=== PATIENT | male | born 1985 | race African-American/Black ===

== ENCOUNTER 2024-08-13 15:05 | Emergency (ER) | payer BC, SELFPAY ==
[2024-08-13 15:08] VITALS: BP 136/81; PULSE 88; RESP 16; TEMP 37.4; O2SAT 100
--- NOTE | 2024-08-13 15:29 | ED_ITS ---
HPI - General Adult General Chief complaint: Allergic Reaction Stated complaint: STD Exposure Time Seen by Provider: 08/13/24 15:29 Source: patient, RN notes reviewed and old records reviewed Mode of arrival: ambulatory Limitations: no limitations History of Present Illness HPI narrative: 38 year old male with complaints of burning with urination started yesterday with possible exposure to STD's 2 weeks ago. Patient reports that his throat feels swollen with some painful swallowing, able to control his secretions and states feels hard to breath at times question if allergic to something, Patient has nonlabored breathing with SAO2 100% on room air no trismus or any Slick angina, Patient throat is red with no swelling noted.. Patient reports that he just returned from [place] yesterday. has had many new foods, spices, different skin care product. MD complaint: sore throat and possible STD exposure Onset (ago): day(s) (burning with urination starting yesterday with possible STD exposure 2 weeks ago) Severity: mild Treatments prior to arrival: none Related Data Home Medications ?Medication ?Instructions ?Recorded ?Confirmed ?Last Taken ?Type ascorbate calcium (vitamin C) .ROUTE 08/13/24 Unknown History bupropion HCl 100 mg tablet,12 hr mg PO 08/13/24 Unknown History sustained-release naltrexone 50 mg tablet mg 08/13/24 Unknown History Allergies Allergy/AdvReac Type Severity Reaction Status Date / Time No Known Allergies Allergy Verified 08/13/24 15:37 Review of Systems Review of Systems: CONSTITUTIONAL: Denies fever, chills, or sweats. EYES: Denies visual changes, redness, or discharge. ENT: Denies rhinorrhea, congestion,positive sore throat, no otalgia. CARDIOVASCULAR: Denies chest pain, palpitations, or edema. RESPIRATORY: Denies cough or acute dyspnea. GASTROINTESTINAL: Denies abdominal pain, nausea, vomiting, or diarrhea. GENITOURINARY: states some dysuria no hematuria, concern for possible exposure to STD. SKIN: Denies rash or itching. MUSCULOSKELETAL: Denies back pain, joint pain, or myalgia. NEUROLOGIC: Denies headache, numbness, or weakness. PSYCHIATRIC: Denies anxiety or depression. All systems reviewed & are unremarkable except as noted in HPI and below PMFSH Past Medical History Medical History (Updated 08/15/24 @ 15:35 by Ashley Quintana NP) Anxiety and depression Social History Social History (Updated 08/15/24 @ 15:24 by Ashley Quintana NP) Smoking status: Smoker, status unknown Alcohol intake: unknown Substance use: unknown Living arrangements: with family Gender identity (if verbalized by the patient): Male Comments At time of signature, agree with nursing past medical, surgical, social and family history. There is no relevant family history pertinent to the presenting complaint Exam Narrative: GENERAL: Well-appearing, well-nourished, and in no acute distress. HEAD: Normocephalic, atraumatic. EYES: PERRLA and EOMI. ENT: Nares clear, no rhinorrhea or epistaxis. Mucous membranes moist.TM's normal, throat with some redness with no swelling to throat NECK: Supple. no lymphadenopathy CHEST: Clear to auscultation. No respiratory distress. respirations even and nonlabored SAO2 100% on room air HEART: Regular rate and rhythm. No murmur heard. Normal peripheral pulses. ABDOMEN: Soft, nontender, nondistended, normal active bowel sounds.no CVA tenderness, reports some burning with urination no penile drainage. EXTREMITIES: Normal range of motion. No edema. SKIN: Warm, dry, no rash. NEURO: No focal deficits. Alert and oriented x3. Course Course Emergency Course: Patient is aware of diagnosis, understands and agrees to treatment plan.? Anticipatory guidance given.? Patient agrees to follow-up as directed and is aware of reasons to seek care at the emergency department. Portions of this record may have been created with voice recognition software Level of Care: Express Care Visit Vital Signs Vital signs: Vital Signs Temperature 37.4 C 08/13/24 15:08 Pulse Rate 88 08/13/24 15:08 Respiratory Rate 16 08/13/24 15:08 Blood Pressure 136/81 08/13/24 15:08 Pulse Oximetry 100 08/13/24 15:08 Oxygen Delivery Room Air 08/13/24 15:08 Temperature 37.4 C 08/13/24 15:08 Pulse Rate 88 08/13/24 15:08 Respiratory Rate 16 08/13/24 15:08 Blood Pressure 136/81 08/13/24 15:08 Pulse Oximetry 100 08/13/24 15:08 Oxygen Delivery Room Air 08/13/24 15:08 Reviewed Medical Decision Making MDM Narrative Medical decision making narrative: Exam findings and imaging show no acute concerns or changes; patient is non- toxic appearing and is in no distress.? Patient is appropriate for outpatient treatment and follow-up Patient received Rocephin 500mg Im with Lidocaine while in clinic and tolerated well with no reaction. Differential Diagnosis Differential Diagnosis: possible exposure to STD, urinary burning, pharyngitis, strep pharyngitis URI Medical Records Medical records reviewed: Yes I reviewed the external patient's medical records. Vital Signs Vital Signs: Vital Signs Temperature 37.4 C 08/13/24 15:08 Pulse Rate 88 08/13/24 15:08 Respiratory Rate 16 08/13/24 15:08 Blood Pressure 136/81 08/13/24 15:08 Pulse Oximetry 100 08/13/24 15:08 Oxygen Delivery Room Air 08/13/24 15:08 Temperature 37.4 C 08/13/24 15:08 Pulse Rate 88 08/13/24 15:08 Respiratory Rate 16 08/13/24 15:08 Blood Pressure 136/81 08/13/24 15:08 Pulse Oximetry 100 08/13/24 15:08 Oxygen Delivery Room Air 08/13/24 15:08 reviewed Lab Data Lab results reviewed: Yes I reviewed the patient's lab results. Lab results narrative: strep screen negative culture sent Urine dip completed and reviewed with no blood or any nitrite or Leukocytes in urine Dirty urine sent for STD analysis see reports Labs: Lab Results 08/13/24 08/13/24 08/13/24 Range/Units 15:38 15:39 16:27 POC Urine Color Yellow POC Urine Clarity Clear POC Urine pH 6.0 POC Ur Specif [place] 1.030 POC Urine Protein Negative (Negative) POC Ur Glucose (UA) Negative (Negative) POC Urine Ketones Negative (Negative) POC Urine Blood Negative (Negative) POC Urine Nitrite Negative (Negative) POC Urine Bilirubin Negative (Negative) POC Urine Urobilinogen 0.2 POC U Leukocyte Esteras Negative (Negative) C. trachomatis (PCR) Not detected (NOT DETECTE) N. gonorrhoeae (PCR) Not detected (NOT DETECTE) POC Grp A Strep Screen Negative (Negative) T. vaginalis (PCR) Not detected (NOT DETECTE) Critical Care Time Critical Care Time Critical Care Time: No Discharge Plan Discharge Clinical Impression: Possible exposure to STD Pharyngitis Qualifiers: Pharyngitis/tonsillitis etiology: unspecified etiology Qualified Code(s): J02.9 - Acute pharyngitis, unspecified Patient Disposition: Home, Self-Care Condition: Stable Instructions: Antibiotic Form, Sexually Transmitted Diseases (ED), Pharyngitis (ED) Additional Instructions: STD testing sent for GC chlamydia and Trichomonas Urine dip performed showing no abnormalities Strep screen negative culture sent Patient will be notified of test results either later this evening or tomorrow and if any further medications are required and they will be ordered at that time May take Zyrtec or Claritin daily for any sinus congestion drainage If your symptoms persist, change or worsen significantly before you can contact your personal physician then please, without delay, go to the emergency department for further evaluation. Follow-up with PCP in 7-10 days or sooner if needed Follow up with PCP soon in regards to your blood pressure which is elevated above threshold for referral. Blood pressure above 120/80 may indicate pre- hypertension. 136/81 Tylenol or ibuprofen for any fever pain Patient Language: Emirati Prescriptions: No Action naltrexone 50 mg tablet bupropion HCl 100 mg tablet sustained-release 12 hr PO ascorbate calcium (vitamin C) .ROUTE Follow-up/Referrals: Ag,Brando Marroquin DO [Primary Care Provider] - Time of Disposition: 16:08 Quality Miracle Coma Scale Eyes: Open Verbal: Oriented and Alert Motor: Follows Commands Miracle Coma Total Score: 15
[2024-08-13 15:41] LABS: EDSTREPNEGPOS1 Negative (Negative)
[2024-08-13] MEDS: cefTRIAXone 500 MG, LIDOCAINE 1% LOCAL INJ 1 ML IM (16:02)
[2024-08-13 16:30] LABS: EDUAAPPEAR Clear; EDUABILI Negative (Negative); EDUABLOOD Negative (Negative); EDUACOLOR1 Yellow; EDUAGLUCOSE Negative (Negative); EDUAKETONE Negative (Negative); EDUALEUKO Negative (Negative); EDUANITRATE Negative (Negative); EDUAPROTEIN Negative (Negative); EDUAUROBILI 0.2
[2024-08-13 17:45] LABS: Trichomonas Vag PCR NOT DETECTED (NOT DETECTE)
[2024-08-13 18:08] LABS: Chlamydia trachomatis NOT DETECTED (NOT DETECTE); Neisseria gonorrhoeae PCR NOT DETECTED (NOT DETECTE)
--- OUTSIDE RECORDS SUMMARY | 2024-08-20 22:51 | XMS_ITS | Clinical Summary ---
Author Organization [facility] Address [address] [place] [address]. 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 Gender Identity Not on file Sexual Orientation Not on file Last Filed Vital Signs Vital Sign Reading Time Taken Comments Blood Pressure 118/85 11/04/2021 9:51 AM CDT Pulse 85 11/04/2021 9:51 AM CDT Temperature 36.6 ??C (97.8 ??F) 11/04/2021 6:22 AM CD T Respiratory Rate 18 11/04/2021 9:51 AM CDT Oxygen Saturation 97% 11/04/2021 9:51 AM CDT Inhaled Oxygen Concentration - - Weight 117.9 kg (259 lb 14.8 oz) 11/02/2021 6:36 PM MANAGER MEDICAL Height 182.9 cm (6') 11/02/2021 6:36 PM MANAGER MEDICAL Body Mass Index 35.25 11/02/2021 6:36 PM MANAGER MEDICAL Plan of Treatment Health Maintenance Due Date Last Done Comments Annual Physical 1988 Hepatitis C 12/10/2003 DTaP, Tdap and Td Vaccines ( 1 - Tdap) 2004 Hepatitis B Vaccines (1 of 3 - 19+ 3-dose series) 2004 COVID-19 Vaccine (2023-2 5 season) 2024 Influenza Adult (#1) 2024 HPV Vaccines Aged Out No longer eligi ble based on patient's age to complete this topic Meningococcal Vaccine Aged Out No haleigh vitor eligible based on patient's age to complete this topic Pneumococcal Vaccine: Pediat rics (0 to 5 Years) and At-Risk Patients (6 to 64 Years) Aged Out No longer eligible b ased on patient's age to complete this topic RSV Immunizations Under 20 Months Aged Out No longer eligible based on patient's age to complete this topic Insurance [place] [id number] Care Teams Mortgage Servicing Specialist Relationship Specialty Start Date End Date None, Provider, PCP - General 11/02/21
--- OUTSIDE RECORDS SUMMARY | 2024-08-20 22:51 | XMS_ITS | Encounter Summary ---
Author Organization [facility] Address [address] [place] [address]. 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 No / Unsure 11/02/2021 6:37 PM ASSISTANT TODDLER TEACHER documented as of this encounter Plan of Treatment Not on file documented as of this encounter Visit Diagnoses Not on filedocumented in this encounter Additional Health Concerns Infection Onset Date Last Indicated Resolved Time COVID-19 Rule Out 11/02/2021 11/02/2021 11/03/2021 6:46 PM CDT documented as of this encounter Care Teams Powder Monkey Relationship Specialty Start Date End Date None, Provider, PCP - General 11/02/21 documented as of this encounter
--- OUTSIDE RECORDS SUMMARY | 2024-08-20 22:51 | XMS_ITS | Encounter Summary ---
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 Psychiatric/Behavioral: Positive for suicidal ideas. Negative for confusion, hallucinations and self-injury. Physical Exam Filed Vitals: 11/02/21 1836 11/02/21 2215 BP: (!) 161/106 133/80 Pulse: 119 77 Resp: 20 17 Temp: 98.2 ??F (36.8 ??C) TempSrc: Oral SpO2: 97% 96% Weight: 117.9 kg (259 lb 14.8 oz) Height: 6' (1.829 m) Physical Exam Vitals and nursing note reviewed. Constitutional: Appearance: He is well-developed. HENT: Head: Normocephalic and atraumatic. Eyes: General: Right eye: No discharge. Left eye: No discharge. Pupils: Pupils are equal, round, and reactive to light. Cardiovascular: Rate and Rhythm: Normal rate and regular rhythm. Heart sounds: Normal heart sounds. No murmur heard. Pulmonary: Effort: Pulmonary effort is normal. No respiratory distress. Breath sounds: Normal breath sounds. No stridor. No wheezing or rales. Abdominal: General: Bowel sounds are normal. There is no distension. Palpations: Abdomen is soft. Tenderness: There is no abdominal tenderness. There is no guarding or rebound. Musculoskeletal: General: No deformity. Normal range of motion. Cervical back: Normal range of motion and neck supple. Skin: General: Skin is warm and dry. Findings: No rash. Neurological: Mental Status: He is alert and oriented to person, place, and time. Psychiatric: Mood and Affect: Mood is depressed. Affect is tearful. Speech: Speech normal. Behavior: Behavior normal. Behavior is not agitated or aggressive. Thought Content: Thought content includes suicidal ideation. Thought content does not include homicidal ideation. Thought content includes suicidal plan. Thought content does not include homicidal plan. Cognition and Memory: Cognition and memory normal. Judgment: Judgment normal. Comments: Patient tearful, flat affect, poor eye contact Diagnostic Studies / Procedures Orders Placed This Encounter ??? CBC W/DIFF AUTOMATED ??? SALICYLATE ??? ETHANOL ??? URINALYSIS ??? DRUG SCREEN RAPID ??? ACETAMINOPHEN ??? COMPREHENSIVE METABOLIC PANEL ??? THYROID STIM HORMONE, TSH ??? Patient monitoring 1 staff:1 patient ??? ED Cardiac Monitoring ??? Continuous Pulse Oximetry ??? Vital signs ??? Vital signs ??? Insert Peripheral IV ??? ECG 12 lead ??? CORONAVIRUS (COVID 19) PCR ELECTROCARDIOGRAMS: Results for orders placed or performed during the hospital encounter of 11/02/21 ECG 12 lead Narrative SJS-ED Test Date: 2021-11-02 Pat Name: BETHANY BOSWELL Department: Room: EXAM OO Gender: Male Nursing Professor: VALENTINA : 1985 Requested By: GASTON MALAGON Order Number: [id number] Reading MD: Measurements Intervals Keller Rate: 88 P: 47 TX: 154 QRS: 47 QRSD: 105 T: 17 QT: 328 QTc: 398 Interpretive Statements SINUS RHYTHM ECG with sinus rhythm, rate 88 bpm, no acute ST elevation, normal intervals. LABORATORY STUDIES: Results for orders placed or performed during the hospital encounter of 11/02/21 CBC W/DIFF AUTOMATED Result Value Ref Range WBC 7.5 4.0 - 10.8 x10'3/uL RBC 4.80 4.50 - 6.10 x10'6/uL HGB 13.9 13.0 - 18.0 G/DL HCT 42.1 37.0 - 52.0 % MCV 87.7 78.0 - 100.0 FL MCH 29.0 27.0 - 31.0 PG MCHC 33.0 33.0 - 36.0 G/DL RDW 13.5 11.5 - 14.5 % PLT 209 150 - 350 x10'3/uL MPV 10.2 7.4 - 10.4 FL ABS. NEUTROPHILS 4.29 1.60 - 8.30 x10'3/uL ABS. LYMPHOCYTES 2.46 0.80 - 4.70 x10'3/uL ABS. MONOCYTES 0.58 0.00 - 1.50 x10'3/uL ABS. EOSINOPHILS 0.14 0.00 - 0.40 x10'3/uL ABS. BASOPHILS 0.01 0.00 - 0.20 x10'3/uL ABS. IMMATURE GRANULOCYTES 0.02 0.00 - 0.03 x10'3/uL ABS. NUCLEATED RBC'S 0.00 0.0 x10'3/uL SALICYLATE Result Value Ref Range Salicylates <1.7 (LL) 2.8 - 20.0 MG/DL ETHANOL Result Value Ref Range Alcohol ZERO 0 G/DL URINALYSIS Result Value Ref Range COLOR (U) LIGHT YELLOW TRANSPARENCY CLEAR Specific Wheeler (U) 1.021 1.002 - 1.035 U PH 6.0 5 - 8 PROTEIN (U) NEGATIVE NEGATIVE URINE GLUCOSE NEGATIVE NEGATIVE MG/DL U KETONES NEGATIVE NEGATIVE BILIRUBIN (U) NEGATIVE NEGATIVE BLOOD NEGATIVE NEGATIVE NITRITES NEGATIVE NEGATIVE UROBILINOGEN NORMAL 0 - 1 EU/DL LEUKOCYTE ESTERASE NEGATIVE NEGATIVE RBC/HPF <1 0 - 3 /HPF WBC/HPF 3 0 - 6 /HPF BACTERIA (URINE) NONE /HPF DRUG SCREEN RAPID Result Value Ref Range PHENCYCLIDINE PCP (U) NEGATIVE NEGATIVE BENZODIAZEPINES SCREEN (U) NEGATIVE NEGATIVE COCAINE METABOLITES (U) NEGATIVE NEGATIVE AMPHETAMINE (U) NEGATIVE NEGATIVE CANNABINOIDS SCREEN (U) NEGATIVE NEGATIVE OPIATE SCREEN (U) NEGATIVE NEGATIVE BARBITURATES SCREEN (U) NEGATIVE NEGATIVE URINE TOX COMMENT Unconfirmed screening results are to be used only for medical purposes. CUTOFF CONCENTRATION Cut-off Concentration for a positive result ACETAMINOPHEN Result Value Ref Range Acetaminophen <2.0 (L) 10.0 - 30.0 MCG/ML COMPREHENSIVE METABOLIC PANEL Result Value Ref Range SODIUM 139 136 - 145 MMOL/L POTASSIUM 3.8 3.5 - 5.1 MMOL/L CHLORIDE S/P/B 107 98 - 107 MMOL/L CO2 29.2 21.0 - 32.0 MMOL/L GLUCOSE 100 74 - 106 MG/DL BUN 11 7 - 18 MG/DL CREATININE S/P/B 1.01 0.70 - 1.30 MG/DL CALCIUM 9.1 8.5 - 10.1 MG/DL BILIRUBIN TOTAL S/P/B 0.2 0.2 - 1.0 MG/DL ALKALINE PHOSPHATASE S/P/B 113 45 - 115 U/L AST 52 (H) 15 - 37 U/L ALT 40 16 - 61 U/L TOTAL PROTEIN S/P/B 7.6 6.4 - 8.2 G/DL ALBUMIN S/P/B 4.1 3.4 - 5.0 G/DL ANION GAP 2.8 (L) 5.0 - 15.0 MMOL/L OSMOLALITY (CALC) 287 MOSM/KG eGFR Non-Afr. Amer. >90 >90 ML/MIN/1.73 M2 eGFR Afr. Amer. >90 >90 ML/MIN/1.73 M2 GFR NOTES GFR REFERENCES: THYROID STIM HORMONE, TSH Result Value Ref Range TSH 1.440 0.358 - 3.740 uIU/ML IMAGING STUDIES No orders to display ED Course / Medical Decision Making Patient presents with suicidal ideation, active plan. Pertinent diagnostic studies to be performed for further workup. All emergent diagnoses considered on the differential diagnosis. Patient staffedwith attending physician Dr. Goncalves. ED Course as of Nov 03 6 Sat Nov 02, [id number] Called PRT, no answer, left voicemail for PRT to come see patient. [ZE] [id number] PRT evaluated patient, will have psych resident see. Patient updated and all questions answered to satisfaction. [ZE] [id number] residential construction instructor informed that patient will be admitted for further cares. Patient updated and in agreement with plan. All questions answered. [ZE] ED Course User Index [ZE] Gaston Malagon MD Medications - No data to display Clinical Impression Suicidal ideation (Primary) Depression There are no discharge medications for this patient. Disposition: Admit Follow Up: No follow-up provider specified. Gaston Malagon MD 11/03/2021 Cosigned by Lupe Arevalo MD at 11/07/2021 2:07 AM CDT ING MACHINE OPERATOR Associated attestation - Lupe Arevalo MD - 11/07/2021 2:07 AM CDT I saw and evaluated the patient, participating in the disla portions of the service. I reviewed the resident???s note. I agree with the resident???s findings and plan. LUPE GONCALVES MD 11/07/2021 documented in this encounter Plan of Treatment Not on file documented as of this encounter Procedures Procedure Name Priority Date/Time Associated Diagnosis Comments CORONAVIRUS (COVID 19) Nurse Collected Priority 11/02/2021 9:28 PM DRAWING MACHINE OPERATOR COMPREHENSIVE METABOLIC PANEL STAT 11/02/2021 7:12 PM DRAWING MACHINE OPERATOR CBC W/DIFF AUTOMATED STAT 11/02/2021 7:12 PM DRAWING MACHINE OPERATOR THYROID STIM HORMONE TSH STAT 11/02/2021 7:12 PM DRAWING MACHINE OPERATOR SALICYLATE STAT 11/02/2021 7:12 PM DRAWING MACHINE OPERATOR ETHANOL STAT 11/02/2021 7:12 PM DRAWING MACHINE OPERATOR ACETAMINOPHEN STAT 11/02/2021 7:12 PM DRAWING MACHINE OPERATOR DRUG SCREEN RAPID Nurse Collected Priority 11/02/2021 6:52 PM DRAWING MACHINE OPERATOR HC URINALYSIS AUTO W/MICRO Nurse Collected Priority 11/02/2021 6:52 PM DRAWING MACHINE OPERATOR ECG 12-LEAD STAT 11/02/2021 6:49 PM DRAWING MACHINE OPERATOR documented in this encounter Results * CORONAVIRUS (COVID 19) PCR (11/02/2021 9:28 PM DRAWING MACHINE OPERATOR) SPECIMEN NASAL 11/02/2021 8:46 PM DRAWING MACHINE OPERATOR [facility] CORONAVIRUS SARS COV 2 PCR (RESP) NEGATIVE NEGATIVE 11/03/2021 6:46 PM CDT [facility] Comment: THE SARS-CoV-2 TEST HAS BEEN AUTHORIZED BY THE FDA UNDER AN EUA FOR USE BY AUTHORIZED LABORATORIES. PERFORMED BY NUCLEIC ACID AMPLIFICATION PCR FIRST TEST UNKNOWN 11/02/2021 8:46 PM DRAWING MACHINE OPERATOR [facility] EMPLOYED IN HEALTHCARE NO 11/02/2021 8:46 PM DRAWING MACHINE OPERATOR [facility] SYMPTOMATIC DEFINED BY CDC NO 11/02/2021 8:46 PM DRAWING MACHINE OPERATOR [facility] HOSPITALIZATION STATUS NO 11/02/2021 8:46 PM DRAWING MACHINE OPERATOR [facility] RESIDENT OF [facility] NO 11/02/2021 8:46 PM DRAWING MACHINE OPERATOR [facility] NASAL STRUCTURE / Unknown 11/02/2021 9:28 PM DRAWING MACHINE OPERATOR Gaston Malagon MD MICROBIOLOGY - GENERAL [facility] Final Result Performing Organization Address [facility]/ZIP Co de Phone Number [facility] [address] [place] [address], [phone] [facility] [address] [place] [address], * THYROID STIM HORMONE, TSH (11/02/2021 7:12 PM DRAWING MACHINE OPERATOR) TSH 1.440 0.358 - 3.740 uIU/ML 11/02/2021 8:10 PM DRAWING MACHINE OPERATOR [facility] 11/02/2021 7:12 PM DRAWING MACHINE OPERATOR Gaston Malagon MD LABORATORY Final Resul t Performing Organization Address [facility]/ZIP Co de Phone Number [facility] [address] [place] [address], [place] [phone] * (ABNORMAL) COMPREHENSIVE METABOLIC PANEL (11/02/2021 7:12 PM DRAWING MACHINE OPERATOR) SODIUM S/P/B 139 136 - 145 MMOL/L 11/02/2021 8:10 PM DRAWING MACHINE OPERATOR [facility] POTASSIUM S/P/B 3.8 3.5 - 5.1 MMOL/L 11/02/2021 8:10 PM DRAWING MACHINE OPERATOR [facility] CHLORIDE S/P/B 107 98 - 107 MMOL/L 11/02/2021 8:10 PM [facility] CO2 29.2 21.0 - 32.0 MMOL/L 11/02/2021 8:10 PM [facility] GLUCOSE 100 74 - 106 MG/DL 11/02/2021 8:10 PM [facility] BUN 11 7 - 18 MG/DL 11/02/2021 8:10 PM [facility] CREATININE S/P/B 1.01 0.70 - 1.30 MG/DL 11/02/2021 8:10 PM [facility] CALCIUM S/P/B 9.1 8.5 - 10.1 MG/DL 11/02/2021 8:10 PM [facility] BILIRUBIN TOTAL S/P/B 0.2 0.2 - 1.0 MG/DL 11/02/2021 8:10 PM [facility] ALKALINE PHOSPHATASE S/P/B 113 45 - 115 U/L 11/02/2021 8:10 PM [facility] AST 52(H) 15 - 37 U/L 11/02/2021 8:10 PM [facility] ALT 40 16 - 61 U/L 11/02/2021 8:10 PM [facility] TOTAL PROTEIN S/P/B 7.6 6.4 - 8.2 G/DL 11/02/2021 8:10 PM [facility] ALBUMIN S/P/B 4.1 3.4 - 5.0 G/DL 11/02/2021 8:10 PM [facility] ANION GAP 2.8(L) 5.0 - 15.0 MMOL/L 11/02/2021 8:10 PM [facility] OSMOLALITY (CALC) 287 MOSM/KG 022 8:10 PM [facility] Comment:REFERENCE RANGE NOT ESTABLISHED EGFR NON-AFR. AMER. >90 >90 ML/MIN/1. 73 M2 11/02/2021 8:10 PM DRAWING MACHINE OPERATOR [facility] EGFR AFR. AMER. >90 >90 ML/MIN/1. 73 M2 11/02/2021 8:10 PM DRAWING MACHINE OPERATOR [facility] GFR NOTES GFR REFERENCE S: 11/02/2021 8:10 PM DRAWING MACHINE OPERATOR [facility] Comment: THE ESTIMATED GFR IS CALCULATED USING THE 2009 CKD-EPI EQUATION. THE FOLLOWING CATEGORIES FOR GRADING RENAL FUNCTION ARE RECOMMENDED BY THE INTERNATIONAL SOCIETY OF NEPHROLOGY (KDIGO 2012 CLINICAL PRACTICE GUIDELINE). G1,NORMAL OR HIGH: >89 ml/min/1.73 m2 G2,MILDLY DECREASED: 60-89 ml/min/1.73 m2 G3A,MILDLY TO MODERATELY DECREASED: 45-59 ml/min/1.73 m2 G3B,MODERATELY TO SEVERELY DECREASED: 30-44 ml/min/1.73 m2 G4,SEVERELY DECREASED: 15-29 ml/min/1.73 m2 G5,KIDNEY FAILURE: <15 ml/min/1.73 m2 11/02/2021 7:12 PM DRAWING MACHINE OPERATOR us Gaston Malagon MD LABORATORY Final Resul t Performing Organization Address City/[facility]/ZIP Co de Phone Number [facility] [address] [place] [address], [phone] * (ABNORMAL) ACETAMINOPHEN (11/02/2021 7:12 PM DRAWING MACHINE OPERATOR) ACETAMINOPHEN S/P/B <2.0(L) 10.0 - 30.0 MCG/ML 11/02/2021 8:09 PM DRAWING MACHINE OPERATOR [facility] 11/02/2021 7:12 PM DRAWING MACHINE OPERATOR us Gaston Malagon MD LABORATORY Final Resul t Performing Organization Address City/[facility]/ZIP Co de Phone Number [facility] [address] [place] [address], [place] [phone] * ETHANOL (11/02/2021 7:12 PM DRAWING MACHINE OPERATOR) ALCOHOL S/P/B ZERO 0 G/DL 11/02/2021 7:38 PM DRAWING MACHINE OPERATOR [facility] 11/02/2021 7:12 PM DRAWING MACHINE OPERATOR us Gaston Malagon MD LABORATORY Final Resul t Performing Organization Address [facility] de Phone Number [facility] [address] [place] [address], [phone] * (ABNORMAL) SALICYLATE (11/02/2021 7:12 PM DRAWING MACHINE OPERATOR) SALICYLATES <1.7(LL) 2.8 - 20.0 MG/DL 11/02/2021 8:10 PM DRAWING MACHINE OPERATOR [facility] 11/02/2021 7:12 PM DRAWING MACHINE OPERATOR Gaston Malagon MD LABORATORY Final Resul t Performing Organization Address [facility] de Phone Number [facility] [address] [place] [address], [phone] * CBC W/DIFF AUTOMATED (11/02/2021 7:12 PM DRAWING MACHINE OPERATOR) WBC 7.5 4.0 - 10.8 x10'3/uL 11/02/2021 7:25 PM DRAWING MACHINE OPERATOR [facility] RBC 4.80 4.50 - 6.10 x10'6/uL 11/02/2021 7:25 PM DRAWING MACHINE OPERATOR [facility] HGB 13.9 13.0 - 18.0 G/DL 11/02/2021 7:25 PM DRAWING MACHINE OPERATOR [facility] HCT 42.1 37.0 - 52.0 % 11/02/2021 7:25 PM DRAWING MACHINE OPERATOR [facility] MCV 87.7 78.0 - 100.0 FL 11/02/2021 7:25 PM DRAWING MACHINE OPERATOR [facility] MCH 29.0 27.0 - 31.0 PG 11/02/2021 7:25 PM DRAWING MACHINE OPERATOR [facility] MCHC 33.0 33.0 - 36.0 G/DL 11/02/2021 7:25 PM DRAWING MACHINE OPERATOR [facility] RDW 13.5 11.5 - 14.5 % 11/02/2021 7:25 PM DRAWING MACHINE OPERATOR [facility] PLT 209 150 - 350 x10'3/uL 11/02/2021 7:25 PM DRAWING MACHINE OPERATOR [facility] MPV 10.2 7.4 - 10.4 FL 11/02/2021 7:25 PM DRAWING MACHINE OPERATOR [facility] ABS. NEUTROPHILS 4.29 1.60 - 8.30 x10'3/uL 11/02/2021 7:25 PM DRAWING MACHINE OPERATOR [facility] ABS. LYMPHOCYTES 2.46 0.80 - 4.70 x10'3/uL 11/02/2021 7:25 PM DRAWING MACHINE OPERATOR [facility] ABS. MONOCYTES 0.58 0.00 - 1.50 x10'3/uL 11/02/2021 7:25 PM DRAWING MACHINE OPERATOR [facility] ABS. EOSINOPHILS 0.14 0.00 - 0.40 x10'3/uL 11/02/2021 7:25 PM DRAWING MACHINE OPERATOR [facility] ABS. BASOPHILS 0.01 0.00 - 0.20 x10'3/uL 11/02/2021 7:25 PM DRAWING MACHINE OPERATOR [facility] ABS. IMMATURE GRANULOCYTES 0.02 0.00 - 0.03 x10'3/uL 11/02/2021 7:25 PM DRAWING MACHINE OPERATOR [facility] ABS. NUCLEATED RBC'S 0.00 0.0 x10'3/uL 11/02/2021 7:25 PM [facility] 11/02/2021 7:12 PM DRAWING MACHINE OPERATOR us Gaston Malagon MD LABORATORY Final Resul t [facility] [address] [place] [address], [phone] * DRUG SCREEN RAPID (11/02/2021 6:52 PM DRAWING MACHINE OPERATOR) PHENCYCLIDINE PCP (U) NEGATIVE NEGATIVE 11/02/2021 7:21 PM DRAWING MACHINE OPERATOR [facility] BENZODIAZEPINES SCREEN (U) NEGATIVE NEGATIVE 11/02/2021 7:21 PM DRAWING MACHINE OPERATOR [facility] COCAINE METABOLITES (U) NEGATIVE NEGATIVE 11/02/2021 7:21 PM DRAWING MACHINE OPERATOR [facility] AMPHETAMINE (U) NEGATIVE NEGATIVE 7:21 PM DRAWING MACHINE OPERATOR [facility] CANNABINOIDS SCREEN (U) NEGATIVE NEGATIVE 11/02/2021 7:21 PM DRAWING MACHINE OPERATOR [facility] OPIATE SCREEN (U) NEGATIVE NEGATIVE 022 7:21 PM DRAWING MACHINE OPERATOR [facility] BARBITURATES SCREEN (U) NEGATIVE NEGATIVE 11/02/2021 7:21 PM [facility] URINE TOX COMMENT Unconfirmed screening results are to be used only for medical purposes. 11/02/2021 6:53 PM DRAWING MACHINE OPERATOR [facility] CUTOFF CONCENTRATION (U) Cut-off Concentration for a positive result 11/02/2021 6:53 PM [facility] Comment: Phencyclidine ? 25 ng/mL Benzodiazepines ? 200 ng/mL Cocaine ? 300 ng/mL Amphetamine ? 1000 ng/mL Cannabinoids ?50 ng/mL Opiates ? 300 ng/mL Barbiturates ?200 ng/mL URINE SPECIMEN / Unknown 11/02/2021 6:52 PM DRAWING MACHINE OPERATOR Gaston Malagon MD URINE ORDERABLES Final Resu lt [facility] [address] [place] [address], [phone] * URINALYSIS (11/02/2021 6:52 PM DRAWING MACHINE OPERATOR) COLOR (U) LIGHT YELLOW 11/02/2021 7:02 PM [facility] TRANSPARENCY CLEAR 11/02/2021 7:02 PM [facility] SPECIFIC GRAVITY (U) 1.021 1.002 - 1.035 11/02/2021 7:02 PM [facility] U PH 6.0 5 - 8 11/02/2021 7:02 PM [facility] PROTEIN (U) NEGATIVE NEGATIVE 11/02/2021 7:02 PM [facility] URINE GLUCOSE NEGATIVE NEGATIVE MG/DL 11/02/2021 7:02 PM [facility] KETONES MG/DL (U) NEGATIVE NEGATIVE 11/02/2021 7:02 PM [facility] BILIRUBIN (U) NEGATIVE NEGATIVE 11/02/2021 7:02 PM [facility] BLOOD (U) NEGATIVE NEGATIVE 11/02/2021 7:02 PM [facility] NITRITES NEGATIVE NEGATIVE 11/02/2021 7:02 PM [facility] UROBILINOGEN NORMAL 0 - 1 EU/DL 11/02/2021 7:02 PM [facility] LEUKOCYTES (U) NEGATIVE NEGATIVE 11/02/2021 7:02 PM [facility] RBC/HPF <1 0 - 3 /HPF 11/02/2021 7:02 PM [facility] WBC/HPF 3 0 - 6 /HPF 11/02/2021 7:02 PM [facility] BACTERIA (U) NONE /HPF 11/02/2021 7:02 PM [facility] URINE SPECIMEN / Unknown 11/02/2021 6:52 PM DRAWING MACHINE OPERATOR us Gaston Malagon MD URINE ORDERABLES Final Resu lt Performing Organization Address [facility]/State/ZIP Co de Phone Number [facility] [address] [place] [address], [phone] * ECG 12 lead (11/02/2021 6:49 PM DRAWING MACHINE OPERATOR) 11/02/2021 6:49 PM DRAWING MACHINE OPERATOR Narrative [facility] - 11/03/2021 11:24 AM CDT ?SJS-ED ? Test Date: ?2021-11-02 Pat Name: ? BETHANY ELBERT ? Department: ? Room: ? EXAM OO Gender: ? M ?Nursing Professor: ?? TDEA : ?1985 ? Requested By: GASTON MALAGON Order Number: [id number] ? Reading : ?? Max Foster ? Measurements Intervals ?Keller ? Rate: ? 88 ? P: ?47 TX: ? 154 ?QRS: ?47 QRSD: ? 105 ?T: ?17 QT: ? 328 ? QTc: ?398 ? Interpretive Statements SINUS RHYTHM Procedure Note Max Foster MD - 11/03/2021 S-ED Test Date: 2021-11-02 Pat Name: BETHANY BOSWELL Department: Room: EXAM OO Gender: M Nursing Professor: VALENTINA : 1985 Requested By: GASTON MALAGON Order Number: [id number] Reading MD: Max Foster Measurements Intervals Keller Rate: 88 P: 47 TX: 154 QRS: 47 QRSD: 105 T: 17 QT: 328 QTc: 398 Interpretive Statements SINUS RHYTHM us Gaston Malagon MD ECG ORDERABLES Final Resul t [facility] documented in this encounter Visit Diagnoses Diagnosis Suicidal ideation- Primary Depression Depressive disorder, not elsewhere classified documented in this encounter Additional Health Concerns Infection Onset Date Last Indicated Resolved Time COVID-19 Rule Out 11/02/2021 11/02/2021 11/03/2021 6:46 PM CDT documented as of this encounter Care Teams Jigger Artisan Relationship Specialty Start Date End Date None, Provider, PCP - General 11/02/21 documented as of this encounter
--- OUTSIDE RECORDS SUMMARY | 2024-08-20 22:52 | XMS_ITS | Referral Summary ---
Author Organization [facility] Physician Office Building [address] [place] [id number] Care Team Providers Care Assistant Professor Of Economics Name Role Phone Darryl Curtis MD Primary Care Provide r Allergies No known active allergies Medications No known medications Active Problems No known active problems Immunizations Name Administration Dates Next Due Influenza, Unspecified 06/02/2017(Deferred: Alis ent decision) Social History Tobacco Use Types Packs/Day Years Used Date Smoking Tobacco: Never Smokeless Tobacco: Never Tobacco Cessation:Counseling Given: Yes Alcohol Use Standard Drinks/Week Comments No 0 (1 standard drink = 0.6 oz pur e alcohol) Sex and Gender Information Value Date Recorded Sex Assigned at Not on file Legal Sex Male 6:06 PM FAC ENGINEER Gender Identity Not on file Sexual Orientation Not on file Last Filed Vital Signs Vital Sign Reading Time Taken Comments Blood Pressure 140/88 12/15/2022 6:38 PM CDT Pulse 97 12/15/2022 6:38 PM CDT Temperature 37.4 ??C (99.3 ??F) 12/15/2022 6:38 PM CD T Respiratory Rate 24 12/15/2022 6:38 PM CDT Oxygen Saturation 98% 12/15/2022 6:38 PM CDT Inhaled Oxygen Concentration - - Weight 111.1 kg (245 lb) 12/15/2022 6:38 PM CDT Height 182.9 cm (6') 12/15/2022 6:38 PM CDT Body Mass Index 33.23 12/15/2022 6:38 PM CDT Plan of Treatment Not on file Procedures Procedure Name Priority Date/Time Associated Diagnosis Comments HEPATITIS C ANTIBODY Routine 05/03/2020 10:51 AM CDT Screen for STD (sexually transmitted disease) from Last 3 Months or Most Recently Relevant to Health Maintenance Results * Hepatitis C antibody (05/03/2020 10:51 AM CDT) Hep C Ab Nonreactive Nonreactive [facility]LEX [facility] Comment: Interpretive Data Nonreactive: Antibodies to HCV not detected. Does NOT exclude the possibility of recent exposure to HCV. Equivocal: Equivocal for HCV antibodies. Supplemental molecular testing will be automatically performed to determine infection status in accordance with current CDC screening recommendations. ?? Reactive: Positive for HCV antibodies. ??This may represent current or past HCV infection. Supplemental molecular testing will be automatically performed to determine ??current infection status in accordance with current CDC screening recommendations. Interpretive data was last revised on 2019. Blood specimen (specimen) 05/03/2020 10:51 AM CDT 05/03/2020 5:06 PM CDT Darryl Curtis MD LAB MICROBIOLOGY - NERAL ORDERABLES Final Result [facility] [id number] Department [place] [address] from Last 3 Months or Most Recently Relevant to Health Maintenance Insurance [facility] AMELIA MARTINEZ [id number] [facility] CLAIMS [facility] CLAIMS Care Teams Assistant Professor Of Economics Relationship Specialty [place] [id number] [id number] PCP - General Family Medicine 09/02/17
--- OUTSIDE RECORDS SUMMARY | 2024-08-20 22:52 | XMS_ITS | Encounter Summary ---
Author Organization [facility] Address [address] [facility] [place] [address] Phone Care Team Providers Care Cork Tipper Name Role Phone Brando Luong DO Primary Care Provider +1- [phone] Reason for Visit * PT/OT/ST (Routine) - Closed Specialty Diagnoses / Procedures Referred By Jack t Referred To Contact Rehabilitation Diagnoses Sprain of unspecified collateral ligament of left knee, initial encounter Pain in left knee Brando Luong DO [address] [place] [address] Phone: tel: fax: [facility] [address], [address] [address] Phone: tel: fax: Referral ID Status Reason Start Date Expiration Date Visits Re quested Visits Authorized [id number] Closed 1 12 Encounter Details Date Type Department Care Team (Late st Contact Info) Description 02/24/2024 4:00 PM CDT Physical Therapy [facility] [address] [place] [id number] Brando Luong DO [address] [facility] [place], [place] [id number] Edel Georges, CHAIN REPAIRER [place] Left lateral knee pain (Primary Dx) Discharge Disposition: Discharged to home or Selfcare Social History Tobacco Use Types Packs/Day Years Used Date Smoking Tobacco: Never Smokeless Tobacco: Never Sex and Gender Information Value Date Recorded Sex Assigned at Not on file Legal Sex Male 4:19 PM CDT Gender Identity Not on file Sexual Orientation Not on file documented as of this encounter Miscellaneous Notes * Plan of Care - Edel Georges PTA - 02/24/2024 4:00 PM CDT Physical Therapy Visit - Electronically signed by: EDEL GEORGES PTA February 24, 2024 SUBJECTIVE: Pt reports his knee is doing well but his hip is bothering him. Pt states the Psoas release seems to help. Pt is compliant with exercises Objective TREATMENT: Learner: patient Readiness: eager Method: explanation and demonstration Refer to PT OP Rehab Therapy Treatment flowsheet for details/minutes. Patient response to new exercises provided today: Pt appeared challenged by exercises Interventions provided this session: therex Therapist provided Education and Skilled therapy by instructing pt in exercises and correcting form. Exercises - Hip flexor hamstring stretch 3 min B -HELD1/2 kneeling palloff press purple x10 each way, each foot required cues to increase posterior pelvic tilt - HELDAntirotation walkouts 10 B Blue and yellow - HELDShoulder extension with marching x 15 blue required cues to increase core stabilization - HELDRockerboard AP and ML x3 min each required cues to increase glute activation and core stabilization - HELD 1/2 Foam tandem balance 1 min x 2 each foot in front Manual Therapy: Psoas Release on right- increased ROM and decreased stiffness. Soft tissue mobs to piriformis and glute on R ASSESSMENT: Patient is demonstrating progress as evidenced by decreased knee, hip, and back pain. Pt displayed increased mobility and decreased pain after manual therapy. Patient would benefit from continued skilled interventions, as stated in the plan of care, due to the following functional limitations: limbing stairs, squatting, getting in and out of the car and running. . Preferred Language: New Zealander All charges entered today are appropriate and separate from each other. PLAN Goals to be achieved by discharge Patient will demonstrate the followin. Increased quadriceps flexibility (prone knee bend) to 120 degrees bilaterally with good lumbar stability to be able to walk up/down stairs with decreased pain. 2. Increased glute max and med strength to 4+/5 bilaterally to be able to squat and lift objects with no increased pain. 3. Increased hip extension ROM to 0 degrees bilaterally to to be able to walk up/down stairs with decreased pain. 4. Increased hamstring length to -15 degrees bilaterally to improve ambulation around workplace andhousehold. 5. Increase LEFS score to 75/80 to show improved activity tolerance. 6. Patient to be independent with home program to maintain gains made in therapy. Planned Interventions This patient will likely be seen 2x/week for 6 weeks for the following interventions: - Manual therapy to address mobility/motion deficits and decrease pain - Therapeutic Procedures -Gait training -Neuro Re-Education -Therapeutic Activities -dry needling Treatment may be altered based on patient progression and symptoms. The plan of care, as well as the benefits and risks of therapy were reviewed with the patient and the patient consented to treatment.. documented in this encounter Plan of Treatment Upcoming Encounters Date Type Department Care Team (Late st Contact Info) Description 08/27/2024 11:00 AM PIPE CLEANING MACHINE OPERATOR [facility] 1 [place] [address] Brando Luong DO [address] [place] [address] Discharge Disposition: Discharged to home or Selfcare 08/27/2024 12:00 PM PIPE CLEANING MACHINE OPERATOR Appointment [facility] Radiology 1 [place] [address] Brando Luong DO [address] [place] [address] Discharge Disposition: Discharged to home or Selfcare documented as of this encounter Visit Diagnoses Diagnosis Left lateral knee pain- Primary Pain in joint, lower leg documented in this encounter Care Teams Cork Tipper Relationship Specialty Start Date End Date Brando Luong DO [address] [place] [address] PCP - General Family Medicine 11/01/23 documented as of this encounter
--- OUTSIDE RECORDS SUMMARY | 2024-08-20 22:52 | XMS_ITS | Encounter Summary ---
Author Organization [facility] Address [address] [place] [address] Phone Care Team Providers Care Public Interviewer Name Role Phone Myah Luongn Shai Primary Care Provider [phone]- [phone] Reason for Visit * Reason Comments Back Pain Leg Pain Encounter Details Date Type Department Care Team (Late st Contact Info) Description 01/03/2024 7:58 AM CDT - 01/03/2024 9:09 AM CDT Emergency [facility] Emergency 1 [place] [address] Kailash Hargrove MD [address] [place] [address] Lumbar back pain with radiculopathy affecting right lower extremity Discharge Disposition: Discharged to home or Selfcare Social History Tobacco Use Types Packs/Day Years Used Date Smoking Tobacco: Never Smokeless Tobacco: Never Sex and Gender Information Value Date Recorded Sex Assigned at Not on file Legal Sex Male 4:19 PM CDT Gender Identity Not on file Sexual Orientation Not on file documented as of this encounter Last Filed Vital Signs Vital Sign Reading Time Taken Comments Blood Pressure 128/76 01/03/2024 9:09 AM CDT Pulse 70 01/03/2024 9:09 AM CDT Temperature 36.2 ??C (97.2 ??F) 01/03/2024 8:05 AM CD T Respiratory Rate 18 01/03/2024 9:09 AM CDT Oxygen Saturation 97% 01/03/2024 9:09 AM CDT Inhaled Oxygen Concentration - - Weight 115.7 kg (255 lb) 01/03/2024 8:05 AM CDT Height 182.9 cm (6') 01/03/2024 8:05 AM CDT Body Mass Index 34.58 01/03/2024 8:05 AM CDT documented in this encounter Medications at Time of Discharge dexamethasone (Decadron) 4 MG Tablet Take 1 Tablet by mouth daily. 7 Tablet 01/04/2024 HYDROcodone-acetami nophen (NORCO) 5-325 MG TabletIndications:L umbar back pain with radiculopathy affecting right lower extremity Take 1 Tablet by mouth every 4 hours as needed for Severe pain. 20 Tablet 01/03/2024 documented as of this encounter ED Notes * Ayla Rubio RN - 01/03/2024 9:08 AM CDT Patient discharged. Discharge instructions and patient educational material reviewed with patient; questions and concerns addressed; patient verbalizes understanding, using teach back. Patient was given 2 prescriptions. Patient was informed no drinking alcohol, driving or operating heavy machinery while taking narcotics or muscle relaxants. Patient discharged per ambulatory mode with self as responsible constitution party. Pt is alert and oriented x 4, vss, no distress noted. * Kailash Hargrove MD - 01/03/2024 8:55 AM CDT Chief Complaint Patient presents with Back Pain Leg Pain Patient is a very pleasant 38-year-old male with past medical history of intermittent back problemswho presents with complaint of low back pain that radiates down his right leg. Patient states sinceTuesday he has been having worsening low back pain in the right side that radiates to the right hipas well as the right lower extremity. He states that he has not had any injury, no falls, no fever or chills, no urinary symptoms, no urinary frequency, urgency or dysuria. Pain is mild at rest when he is sitting down, worse with certain movements. Patient also reports some numbness in his right lower extremity. He denies any saddle anesthesia, bowel or bladder incontinence or any other complaints. Back Pain Leg Pain Current Facility-Administered Medications Medication Dose Route Frequency Provider Last Rate Last Admin dexamethasone (DECADRON) injection 8 mg 8 mg Intramuscular Once Kailash Hargrove MD Current Outpatient Medications Medication Sig Dispense Refill [START ON 01/04/2024] dexamethasone (Decadron) 4 MG Tablet Take 1 Tablet by mouth daily. 7 Tablet 0 HYDROcodone-acetaminophen (NORCO) 5-325 MG Tablet Take 1 Tablet by mouth every 4 hours as needed for Severe pain. 20 Tablet 0 No Known Allergies History reviewed. No pertinent past medical history. No past surgical history on file. Social History Socioeconomic History Marital status: Single Spouse name: Not on file Number of children: Not on file Years of education: Not on file Highest education level: Not on file Occupational History Not on file Tobacco Use Smoking status: Never Smokeless tobacco: Never Substance and Sexual Activity Alcohol use: Not on file Drug use: Not on file Sexual activity: Not on file Other Topics Concern Not on file Social History Narrative Not on file Social Determinants of Health Financial Resource Needs: Not on file Food Insecurity Needs: Not on file Transportation Needs: Not on file Physical Activity: Not on file Stress: Not on file Social Integration: Not on file Intimate Partner Violence: Not on file Housing Stability: Not on file BP (!) 132/93 Pulse 67 Temp 97.2 ??F (36.2 ??C) (Tympanic) Resp 17 Ht 6' (1.829 m) Wt 255lb (115.7 kg) SpO2 96% BMI 34.58 kg/m?? Review of Systems All other systems reviewed and are negative. Physical Exam Vitals and nursing note reviewed. Constitutional: Appearance: Normal appearance. He is not ill-appearing. HENT: Head: Normocephalic and atraumatic. Nose: Nose normal. Eyes: Extraocular Movements: Extraocular movements intact. Cardiovascular: Rate and Rhythm: Normal rate. Pulmonary: Effort: Pulmonary effort is normal. No respiratory distress. Musculoskeletal: General: Normal range of motion. Skin: General: Skin is warm and dry. Neurological: General: No focal deficit present. Mental Status: He is alert and oriented to person, place, and time. Procedures No results found for this or any previous visit (from the past 24 hour(s)). Imaging Results None Medical Decision Making Clinical Impression 1. Lumbar back pain with radiculopathy affecting right lower extremity Disposition: Discharge ED Course as of 01/03/24 0900 Sun January 03, 2024 0857 Patient is a very pleasant 38-year-old male who presented with complaint of low back pain. Differential diagnosis includes radiculopathy, likely secondary to disc bulge. He does not have any secondary red flags, no concern for cauda equina at this time. No concern for UTI or kidney stones. We discussed imaging, patient does not have any trauma, no concern for fracture. CT would be of limitedutility, patient needs an MRI of his lumbar back on nonurgent basis. This is likely a radiculopathy. He voices understanding. In the meantime patient will be treated with steroids, will be given analgesia and instructed follow-up with his primary care physician again. [DK] ED Course User Index [DK] Kailash Hargrove MD * Emeka Gongora RN - 01/03/2024 8:08 AM CDT Pt to ed room 7 with c/o low back pain that radiates down his right legs to his foot. Pt states that when he is sitting the pain is decreased, but he has a numbness/tingling to his RLE. As soon as hestands he has shooting pain from his low back down to his foot. Denies any injury. Denies any othersx. documented in this encounter Miscellaneous Notes * PatientPass Patient Instructions - Kailash Hargrove MD - 01/03/2024 9:00 AM CDT Images from the original note were not included. Patient Education Table of Contents Radicular Pain To view videos and all your education online visit, [email or web address] or scan this QR code with your smartphone. Access to this content will in one year. Radicular Pain Radicular pain is a type of pain that spreads from your back or neck along a spinal nerve. Spinal nerves are nerves that leave the spinal cord and go to the muscles. Radicular pain is sometimes called radiculopathy, radiculitis, or a pinched nerve. When you have this type of pain, you may also haveweakness, numbness, or tingling in the area of your body that is supplied by the nerve. The pain may feel sharp and burning. Depending on which spinal nerve is affected, the pain may occur in the: Neck area (cervical radicular pain). You may also feel pain, numbness, weakness, or tingling in thearms. Mid-spine area (thoracic radicular pain). You would feel this pain in the back and chest. This typeis rare. Lower back area (lumbar radicular pain). You would feel this pain as low back pain. You may feel pain, numbness, weakness, or tingling in the buttocks or legs. Sciatica is a type of lumbar radicular pain that shoots down the back of the leg. Radicular pain occurs when one of the spinal nerves becomes irritated or squeezed (compressed). It is often caused by something pushing on a spinal nerve, such as one of the bones of the spine (vertebrae) or one of the round cushions between vertebrae (intervertebral disks). This can result from: An injury. Wear and tear or aging of a disk. The growth of a bone spur that pushes on the nerve. Radicular pain often goes away when you follow instructions from your health care provider for relieving pain at home. How is this treated? Treatment may depend on the cause of the condition and may include: Working with a physical therapist. Taking pain medicine. Applying heat or ice or both to the affected areas. Doing stretches to improve flexibility. Having surgery. This may be needed if other treatments do not help. Different types of surgery may be done depending on the cause of this condition. Follow these instructions at home: Managing pain If directed, put ice on the affected area. To do this: ? Put ice in a plastic bag. ? Place a towel between your skin and the bag. ? Leave the ice on for 20 minutes, 2?3 times a day. ? Remove the ice if your skin turns bright red. This is very important. If you cannot feel pain, heat, or cold, you have a greater risk of damage to the area. If directed, apply heat to the affected area as often as told by your health care provider. Use theheat source that your health care provider recommends, such as a moist heat pack or a heating pad. ? Place a towel between your skin and the heat source. ? Leave the heat on for 20?30 minutes. ? Remove the heat if your skin turns bright red. This is especially important if you are unable to feel pain, heat, or cold. You have a greater risk of getting burned. Activity Do not sit or rest in bed for long periods of time. Try to stay as active as possible. Ask your health care provider what type of exercise or activity is best for you. Avoid activities that make your pain worse, such as bending and lifting. You may have to avoid lifting. Ask your health care provider how much you can safely lift. Practice using proper technique when lifting items. Proper lifting technique involves bending your knees and rising up. Do strength and nbisc-xs-sxwdgc exercises only as told by your health care provider or physical therapist. General instructions Take cghm-dfg-[id number] and prescription medicines only as told by your health care provider. Pay attention to any changes in your symptoms. Keep all follow-up visits. This is important. Contact a health care provider if: Your pain and other symptoms get worse. Your pain medicine is not helping. Your pain has not improved after a few weeks of home care. You have a fever. Get help right away if: You have severe pain, weakness, or numbness. You have difficulty with bladder or bowel control. Summary Radicular pain is a type of pain that spreads from your back or neck along a spinal nerve. When you have radicular pain, you may also have weakness, numbness, or tingling in the area of yourbody that is supplied by the nerve. The pain may feel sharp or burning. Radicular pain may be treated with ice, heat, medicines, or physical therapy. This information is not intended to replace advice given to you by your health care provider. Make sure you discuss any questions you have with your health care provider. Document Released: 2005-09-17 Document Updated: 2022-02-13 Document Reviewed: 2022-02-13 [employer] Patient Education ? 2023 [employer] documented in this encounter Plan of Treatment Upcoming Encounters Date Type Department Care Team (Late st Contact Info) Description 08/27/2024 11:00 AM OPEN HEARTH FURNACE OPERATOR HELPER [facility] [address] [place] [address] Brando Luong DO [address] [facility] [place] [address] Discharge Disposition: Discharged to home or Selfcare 08/27/2024 12:00 PM OPEN HEARTH FURNACE OPERATOR HELPER [facility] 1 [facility] [place] [address] Brando Luong DO [address] [facility] [address] Discharge Disposition: Discharged to home or Selfcare documented as of this encounter Visit Diagnoses Diagnosis Lumbar back pain with radiculopathy affecting right lower extremity- Primary documented in this encounter Administered Medications Inactive Administered Medications - up to 3 most recent administrations Medication Order MAR Action Action Date Dose Rate Site dexamethasone (DECADRON) injection 8 mg 8 mg, Intramuscular, ONCE, 1 dose, On 01/03/24 at 0930 Given 01/03/2024 9:05 AM CDT 8 mg Left Ventrogluteal documented in this encounter Active and Recently Administered Medications Times are shown in CDT. Scheduled Medication Order 01/01/2024 01/02/2024 01/03/2024 dexamethasone (DECADRON) injection 8 mg (COMPLETED) 8 mg, Intramuscular, ONCE, 1 dose, On 01/03/24 at 0930 0905 (Given - Provid er: Ayla Rubio RN) documented in this encounter Care Teams Public Interviewer Relationship Specialty Start Date End Date Brando Luong DO [address] [facility] [place] [address] PCP - General Family Medicine 11/01/23 documented as of this encounter
--- OUTSIDE RECORDS SUMMARY | 2024-08-20 22:52 | XMS_ITS | Encounter Summary ---
Author Organization [facility] Address [address] [facility] [place] [address] Phone Care Team Providers Care Ice Skater Name Role Phone Brando Luong DO Primary Care Provider +1- [phone] Reason for Visit * PT/OT/ST (Routine) - Closed Specialty Diagnoses / Procedures Referred By Jack t Referred To Contact Rehabilitation Diagnoses Sprain of unspecified collateral ligament of left knee, initial encounter Pain in left knee Brando Luong DO [address] [place] [address] Phone: tel: fax: [facility] [address], [address] [address] Phone: tel: fax: Referral ID Status Reason Start Date Expiration Date Visits Re quested Visits Authorized [id number] Closed 1 12 Encounter Details Date Type Department Care Team (Late st Contact Info) Description 03/04/2024 1:30 PM CDT Physical Therapy [facility] [address] [place] [address] Brando Luong DO [address] [place], [place] [id number] Edel Georges, FILM AND VIDEO GRAPHICS DESIGNER [place] Left lateral knee pain (Primary Dx) [...] Notes * Plan of Care - Edel Georges, FILM AND VIDEO GRAPHICS DESIGNER - 03/04/2024 1:30 PM CDT Physical Therapy Visit - Electronically signed by: PATRICIO BARBOUR, Student March 04, 2024 Subjective SUBJECTIVE: Patient says he felt good after the psoas release. He has not been having much pain at all since last visit. He has been doing some glut work and stretches at home. Objective TREATMENT: Learner: patient Readiness: eager Method: explanation and demonstration Refer to PT OP Rehab Therapy Treatment flowsheet for details/minutes. Patient response to new exercises provided today: Pt appeared challenged by exercises Interventions provided this session: [place], manual Therapist provided Education and Skilled therapy by instructing pt in exercises and correcting form. Exercises - Hip flexor hamstring stretch 3 min B - HELD 1/2 kneeling palloff press purple x10 each way, each foot required cues to increase posterior pelvic tilt - HELD Anti-rotation walkouts 10 B Blue and yellow - HELD Shoulder extension with marching x 15 blue required cues to increase core stabilization - HELD Rocker board AP and ML x3 min each required cues to increase glute activation and core stabilization - HELD 1/2 Foam tandem balance 1 min x 2 each foot in front - Half kneeling trunk rotations black band 1 x 15 ea Manual Therapy: Psoas Release on right- increased ROM and decreased stiffness. Soft tissue mobs to piriformis and glute on R Patient arrived 5 minutes late this afternoon. We went through just a couple exercises to stretch hip flexors, and strengthen the core. ASSESSMENT: Patient is demonstrating progress as evidenced by absent pain, no discomfort during exercises this afternoon. Patient would benefit from continued skilled interventions, as stated in the plan of care, due to the following functional limitations: climbing stairs, squatting, getting in and out of the car and running. . Preferred Language: Lebanese All charges entered today are appropriate and [...] patient and the patient consented to treatment.. I have read and agree with student documentation by Patricio Barbour [facility] on this date. Review of documentation includes Note, Doc flow sheet and associated functions to support documentation. EDEL GEORGES PTA documented in this encounter Plan of Treatment Upcoming Encounters Date Type Department Care Team (Late st Contact Info) Description 08/27/2024 11:00 AM TELESALES SPECIALIST Appointment [facility] MRI 1 [place] [address] Brando Luong DO [address] [place] [address] Discharge Disposition: Discharged to home or Selfcare 08/27/2024 12:00 PM TELESALES SPECIALIST Appointment [facility]iology 1 [place] [address] Brando Luong, [address] [address] Discharge Disposition: Discharged to home or Selfcare documented as of this encounter Visit Diagnoses Diagnosis Left lateral knee pain- Primary Pain in joint, lower leg documented in this encounter Care Teams Ice Skater Relationship Specialty Start Date End Date Brando Luong DO [address] [place] [address] PCP - General Family Medicine 11/01/23 documented as of this encounter
--- OUTSIDE RECORDS SUMMARY | 2024-08-20 22:52 | XMS_ITS | Encounter Summary ---
Author Organization [facility] Address [address] [place] [address] Phone Care Team Providers Care Residential Coordinator Name Role Phone Myah Luongn Shai Primary Care Provider +1- [phone] Encounter Details Date Type Department Care Team (Late st Contact Info) Description 05/31/2024 Documentation Only [facility] [address] [place] [id number] Lupe Devine, PT OR Social History Tobacco Use Types Packs/Day Years Used Date Smoking Tobacco: Never Smokeless Tobacco: Never Sex and Gender Information Value Date Recorded Sex Assigned at Not on file Legal Sex Male 4:19 PM CDT Gender Identity Not on file Sexual Orientation Not on file documented as of this encounter Miscellaneous Notes * Plan of Care - Lupe Devine, PT - 05/31/2024 8:19 AM CDT Discharge Summary: Discharge Note Reporting Period from Initial Evaluation to 05/31/2024 Rahat Luisito Boswell is a 38 y.o. patient who was treated in Physical Therapy for knee pain. Patient is being discharged on today's date - 05/31/2024 by PT. Patient has demonstrated progress as evidenced by: decreased pain, improve motion and return to active lifestyle. At time of patient's last appointment they showed ongoing impairments, including intermittent increased soreness with higher level activity. . Plan for patient to be discharged from Physical Therapy at this time. Patient will continue with the previously assigned home exercise program. See goals below for specific status and refer to objective data from most recent visit/progress report and initial evaluation for comparative measures. Goals: Patient will demonstrate the followin. Increased quadriceps flexibility (prone knee bend) to 120 degrees bilaterally with good lumbar stability to be able to walk up/down stairs with decreased pain. PROGRESS 05/31/24 dcf 2. Increased glute max and med strength to 4+/5 bilaterally to be able to squat and lift objects with no increased pain.PROGRESS 05/31/24 dcf 3. Increased hip extension ROM to 0 degrees bilaterally to to be able to walk up/down stairs with decreased pain. MET 03/07/24 dcf 4. Increased hamstring length to -15 degrees bilaterally to improve ambulation around workplace andhousehold. PROGRESS 05/31/24 dcf 5. Increase LEFS score to 75/80 to show improved activity tolerance.PROGRESS 05/31/24 dcf 6. Patient to be independent with home program to maintain gains made in therapy. MET 05/31/24 dcf documented in this encounter Plan of Treatment Upcoming Encounters Date Type Department Care Team (Late st Contact Info) Description 08/27/2024 11:00 AM CAMPUS ADMINISTRATIVE ASSISTANT [facility] [address] [place] [address] Brando Luong DO [address] [place] [address] Discharge Disposition: Discharged to home or Selfcare 08/27/2024 12:00 PM CAMPUS ADMINISTRATIVE ASSISTANT [facility] [address] [place] [address] Brando Luong DO [address] [place] [address] Discharge Disposition: Discharged to home or Selfcare documented as of this encounter Visit Diagnoses Not on filedocumented in this encounter Care Teams Residential Coordinator Relationship Specialty Start Date End Date Brando Luong DO [address] [place] [address] PCP - General Family Medicine 11/01/23 documented as of this encounter
--- OUTSIDE RECORDS SUMMARY | 2024-08-20 22:52 | XMS_ITS | Encounter Summary ---
Author Organization [facility] Address [address] [place] [address] Phone Care Team Providers Care Latin Dance Instructor Name Role Phone Brando Luong DO Primary Care Provider +1- [phone] Reason for Referral * Radiology Services (Routine) - Open Specialty Diagnoses / Procedures Referred By Contsimeon t Referred To Contact Radiology Diagnoses Pain in joint of left knee Procedures MRI LEFT KNEE WO CONTRAST Brando Luong DO [address] [place] [address] Phone: tel: fax: Referral ID Status Reason Start Date Expiration Date Visits Re quested Visits Authorized [id number] Open 07/12/2024 1 1 GRINDING TECHNICIAN Encounter Details Date Type Department Care Team (Late st Contact Info) Description 07/12/2024 Transcribe Orders [facility] Scheduling 1 [place] [address] Brando Luong DO [address] [place] [address] Pain in joint of left knee (Primary Dx) Social History Tobacco Use Types Packs/Day Years Used Date Smoking Tobacco: Never Smokeless Tobacco: Never Sex and Gender Information Value Date Recorded Sex Assigned at Not on file Legal Sex Male 4:19 PM CDT Gender Identity Not on file Sexual Orientation Not on file documented as of this encounter Plan of Treatment Upcoming Encounters Date Type Department Care Team (Late st Contact Info) Description 08/27/2024 11:00 AM TOOL GRINDING TECHNICIAN [facility]oint[facility] MRI 1 [facility] [place] [address] Brando Luong DO [address] [place] [address] Discharge Disposition: Discharged to home or Selfcare 08/27/2024 12:00 PM TOOL GRINDING TECHNICIAN [facility] Diagnostic Radiology 1 [facility] [place] [address] Brando Luong DO [address] [place] [address] Discharge Disposition: Discharged to home or Selfcare Scheduled Orders Name Type Priority Associated Diagnoses Orde r Schedule MRI LEFT KNEE WO CONTRAST Imaging Routine Pain in joint of left knee Expected: 07/12/2024, Expires: 07/12/2025 documented as of this encounter Visit Diagnoses Diagnosis Pain in joint of left knee- Primary Pain in joint, lower leg documented in this encounter Care Teams Latin Dance Instructor Relationship Specialty Start Date End Date Brando Luong DO [address] [place] [address] PCP - General Family Medicine 11/01/23 documented as of this encounter
--- OUTSIDE RECORDS SUMMARY | 2024-08-20 22:52 | XMS_ITS | Encounter Summary ---
Author Organization [facility] Care Team Providers Care Terrazzo Mechanic Helper Name Role Phone Brando Luong DO Primary Care Provider +1- [phone] Encounter Details Date Type Department Care Team (Latest Contact Info) Description 01/03/2024 Travel Social History Tobacco Use Types Packs/Day [...] st Contact Info) Description 08/27/2024 11:00 AM PLACEMENT SECRETARY [facility] [place] [address] Brando Luong DO [address] [place] [address] Discharge Disposition: Discharged to home or Selfcare 08/27/2024 12:00 PM PLACEMENT SECRETARY Appointment [facility] Diagnostic Radiology 1 [place] [address] Brando Luong DO [address] [place] [address] Discharge Disposition: Discharged to home or Selfcare documented as of this encounter Visit Diagnoses Not on filedocumented in this encounter Care Teams Terrazzo Mechanic Helper Relationship Specialty Start Date End Date Brando Luong DO [address] [place] [address] PCP - General Family Medicine 11/01/23 documented as of this encounter
--- OUTSIDE RECORDS SUMMARY | 2024-08-20 22:52 | XMS_ITS | Encounter Summary ---
Author Organization [facility] Care Team Providers Care Tank Calibrator Name Role Phone Brando Luong DO Primary Care Provider +1- [phone] Encounter Details Date Type Department Care Team (Latest Contact Info) Description 02/17/2024 Travel Social History Tobacco Use Types Packs/Day [...] st Contact Info) Description 08/27/2024 11:00 AM CHEMIC MANGLER [facility] [place] [address] Brando Luong DO [address] [place] [address] Discharge Disposition: Discharged to home or Selfcare 08/27/2024 12:00 PM CHEMIC MANGLER Appointment [facility] Diagnostic Radiology 1 [place] [address] Brando Luong DO [address] [place] [address] Discharge Disposition: Discharged to home or Selfcare documented as of this encounter Visit Diagnoses Not on filedocumented in this encounter Care Teams Tank Calibrator Relationship Specialty Start Date End Date Brando Luong DO [address] [place] [address] PCP - General Family Medicine 11/01/23 documented as of this encounter
--- OUTSIDE RECORDS SUMMARY | 2024-08-20 22:52 | XMS_ITS | Encounter Summary ---
Author Organization [facility] Address [address] [facility] [address] [place] [id number] Care Team Providers Care Estimating Manager Name Role Phone Darryl Curtis MD Primary Care Provide r Reason for Visit * Reason Comments Exposed to STD Onset: 2-3 weeks ago Encounter Details Date Type Department Care Team (Late Contact Info) Description 12/15/2022 6:45 PM CDT Office Visit [facility] [address] [place] [address] Kaylan Pérez, TOOL AND DIE SUPERVISOR [address] [place] [address] Exposure to STD (Primary Dx) Social History Tobacco Use Types Packs/Day Years Used Date Smoking Tobacco: Never Smokeless Tobacco: Never Tobacco Cessation:Counseling Given: Yes Alcohol Use Standard Drinks/Week Comments No 0 (1 standard drink = 0.6 oz pur e alcohol) Sex and Gender Information Value Date Recorded Sex Assigned at Not on file Legal Sex Male 6:06 PM BILINGUAL SECRETARY Gender Identity Not on file Sexual Orientation [...] Mass Index 33.23 12/15/2022 6:38 PM CDT documented in this encounter Patient Instructions * Patient Instructions* Kaylan Pérez NP - 12/15/2022 6:45 PM CDT Screened for certain sexually transmitted infections Complete any medications prescribed Instructed they will be called with the test results Instructed NOT to have sex for one week following treatment Instructed to have sexual partners checked and treated before engaging in sexual activity, so that the infection is not passed back and forth Discussed safe sex practices including properly using condoms or abstaining from sex Any further STI testing ie: HIV/AIDS, HEP B or C, Syph[facility] or with your PCP documented in this encounter Progress Notes * Kaylan Pérez NP - 12/15/2022 6:45 PM CDT Images from the original note were not included. Subjective/Objective Patient ID: Rahat Boswell is a 37 y.o. male. Chief Complaint Exposed to STD (Onset: 2-3 weeks ago) Presents to clinic for STD testing. Possibly exposed to Gonorrhea, Trich a couple weeks ago. He denies symptoms. No OTC meds. Review of Systems Constitutional: Negative for chills, fatigue and fever. HENT: Negative for congestion, postnasal drip, rhinorrhea and sore throat. Respiratory: Negative for cough and shortness of breath. Gastrointestinal: Negative for nausea and vomiting. Musculoskeletal: Negative for myalgias. Neurological: Negative for headaches. Physical Exam Vitals reviewed. Constitutional: Appearance: Normal appearance. He is not ill-appearing. HENT: Head: Normocephalic. Mouth/Throat: Pharynx: Oropharynx is clear. Cardiovascular: Rate and Rhythm: Normal rate. Pulmonary: Effort: Pulmonary effort is normal. Breath sounds: Normal breath sounds. Abdominal: General: Abdomen is flat. Palpations: Abdomen is soft. Tenderness: There is no abdominal tenderness. There is no right CVA tenderness or left CVA tenderness. Musculoskeletal: General: Normal range of motion. Skin: General: Skin is warm and dry. Neurological: Mental Status: He is alert and oriented to person, place, and time. Mental status is at baseline. Psychiatric: Mood and Affect: Mood normal. Behavior: Behavior normal. Thought Content: Thought content normal. Judgment: Judgment normal. Vitals: 12/15/22 1838 BP: 140/88 BP Location: Left arm Patient Position: Sitting Pulse: 97 Resp: 24 Temp: 37.4 ??C (99.3 ??F) SpO2: 98% Weight: 111.1 kg (245 lb) Height: 182.9 cm (6') Assessment/Plan Screened for certain sexually transmitted infections Complete any medications prescribed Instructed they will be called with the test results Instructed NOT to have sex for one week following treatment Instructed to have sexual partners checked and treated before engaging in sexual activity, so that the infection is not passed back and forth Discussed safe sex practices including properly using condoms or abstaining from sex Any further STI testing ie: HIV/AIDS, HEP B or C, Syphilis [facility] or with your PCP Diagnoses and all orders for this visit: Exposure to STD (Primary) - Trichomonas - Miscellaneous Test; Future - N. gonorrhoeae/C. trachomatis Amplification Urine; Future - cefTRIAXone (ROCEPHIN) 250 mg/mL intramuscular injection 500 mg - azithromycin (ZITHROMAX) tablet 1,000 mg - metroNIDAZOLE (FLAGYL) tablet 2,000 mg No results found for this or any previous visit (from the past 4 hour(s)). Patient Education: Disposition Treatment plan including expectations, follow up, and return precautions discussed with patient/parent, verbalizes understanding. Medication dosage, use, and potential adverse reactions discussed with patient/parent. Advised to follow up with PCP if symptoms do not resolve as expected or sooner if condition worsens. Signs/symptoms warranting ER evaluation reviewed. Patient and/or guardian was given an opportunity to ask questions, questions answered. Kaylan Pérez NP documented in this encounter Plan of Treatment Not on file documented as of this encounter Results * N. gonorrhoeae/C. trachomatis Amplification Urine (12/15/2022 7:00 PM CDT) C. trachomatis Not detected Not detected ALEX URIAS N. gonorrhoeae Not detected Not detected ALEX URIAS Comment: Testing performed by the [facility]. This assay detects Chlamydia trachomatis and Neisseria gonorrhoeae by nucleic acid amplification testing (NAAT). This test is approved by the [place] Food and Drug Administration and the performance characteristics have been verified by the laboratory. The performance characteristics of this test have not been evaluated in women or individuals less than 16 years of age. Urine (None) 12/15/2022 7:00 PM CDT 12/15/2022 9:49 PM CDT Kaylan Pérez NP LAB MICROBIOLOGY - [facility] ORDERABLES Final Result ALEX URIAS [id number] Department of Laboratories [place] [id number] documented in this encounter Visit Diagnoses Diagnosis Exposure to STD- Primary documented in this encounter Administered Medications Inactive Administered Medications - up to 3 most recent administrations Medication Order MAR Action Action Date Dose Rate Site azithromycin (ZITHROMAX) tablet 1,000 mg 1,000 mg, oral, Once, On Thu12/15/22 at 1930, For 1 dose, Indications: Sexually Transmitted InfectionIndications:Sexua lly Transmitted Infection Given 12/15/2022 7:01 PM CDT 1,000 mg Oral cefTRIAXone (ROCEPHIN) 250 mg/mL intramuscular injection 500 mg 500 mg, intramuscular, Once, On Thu12/15/22 at 1930, For 1 dose, Dilute vial with 0.9 mL of sterile water for a concentration of 250 mg/mL., Indications: Sexually Transmitted InfectionIndications:Sexua lly Transmitted Infection Given 12/15/2022 7:03 PM CDT 500 mg Left Dorsogluteal/But tock metroNIDAZOLE (FLAGYL) tablet 2,000 mg 2,000 mg, oral, Once, On Thu12/15/22 at 1930, For 1 dose, Indications: Sexually Transmitted InfectionIndications:Sexua lly Transmitted Infection Given 12/15/2022 7:02 PM CDT 2,000 mg documented in this encounter Care Teams Estimating Manager Relationship Specialty [place] [id number] [address] PCP - General Family Medicine 09/02/17 documented as of this encounter
--- OUTSIDE RECORDS SUMMARY | 2024-08-20 22:52 | XMS_ITS | Encounter Summary ---
Author Organization [facility] Address [address] [place] [address] Care Team Providers Care Candlemaking Laborer Name Role Phone Darryl Curtis MD Primary Care Provide r Encounter Details Date Type Department Care Team (Late st Contact Info) Description 05/03/2020 2:40 PM CDT Lab [address] [address] Darryl Curtis MD [address] [place] [id number] Screen for STD (sexually transmitted disease) Discharge Disposition: Discharge to home or self care Social History Tobacco Use Types Packs/Day Years Used Date Smoking Tobacco: Never Smokeless Tobacco: Never Alcohol Use Standard Drinks/Week Comments No 0 (1 standard drink = 0.6 oz pur e alcohol) Sex and Gender Information Value Date Recorded Sex Assigned at Not on file Legal Sex Male 6:06 PM DONOR SERVICES MANAGER Gender Identity Not on file Sexual Orientation Not on file documented as of this encounter Discharge Disposition Disposition Code Departure Means Destination Discharge to home or self care documented in this encounter Plan of Treatment Not on file documented as of this encounter Procedures Procedure Name Priority Date/Time Associated Diagnosis Comments N. GONORRHOEAE/C. TRACHOMATIS AMPLIFICATION Routine 05/03/2020 10:51 AM CDT Screen for STD (sexually transmitted disease) HIV 1/2 ANTIBODY PLUS P24 ANTIGEN Routine 05/03/2020 10:51 AM CDT Screen for STD (sexually transmitted disease) HEPATITIS C ANTIBODY Routine 05/03/2020 10:51 AM CDT Screen for STD (sexually transmitted disease) RPR Routine 05/03/2020 10:51 AM CDT Screen for STD (sexually transmitted disease) documented in this encounter Results * Hepatitis C antibody (05/03/2020 10:51 [...] CDT Darryl Curtis MD LAB MICROBIOLOGY - [facility] ORDERABLES Final Result ALEX URIAS [id number] [place] [address] * N. gonorrhoeae/C. trachomatis Amplification Urine (05/03/2020 10:51 AM CDT) C. trachomatis Not detected Not detected ALEX URIAS N. gonorrhoeae Not detected Not detected ALEX URIAS Comment: Testing performed by the [facility]. This assay detects Chlamydia trachomatis and Neisseria gonorrhoeae by nucleic acid amplification testing (NAAT). This test is approved by the [place] Food and Drug Administration and the performance characteristics have been verified by the laboratory. The performance characteristics of this test have not been evaluated in women or individuals less than 16 years of age. Urine (None) 05/03/2020 10:5 1 AM CDT 05/03/2020 5:06 PM CDT Darryl Curtis MD LAB MICROBIOLOGY - [facility] ORDERABLES Final Result Performing Organization Address [facility] Co de Phone Number ALEX [phone] [facility] [place] [address] * RPR (05/03/2020 10:51 AM CDT) RPR Nonreactive Nonreactive [facility] Blood specimen (specimen) 05/03/2020 10:51 AM CDT 05/03/2020 5:06 PM CDT Darryl Curtis MD LAB MICROBIOLOGY - [facility] ORDERABLES Final Result Performing Organization Address [facility] de Phone Number ALEX URIAS [phone] [facility] [place] [address] * HIV 1/2 Antibody plus p24 Antigen (05/03/2020 10:51 AM CDT) Pathologist [facility] HIV 1/2 ab + p24 ag Nonreactive Nonreactive [facility] Comment: Nonreactive for HIV-1 antigen and HIV-1/HIV-2 antibodies. No laboratory evidence of HIV infection. If acute HIV infection is suspected, consider testing for HIV-1 RNA. Blood specimen (specimen) 05/03/2020 10:51 AM CDT 05/03/2020 5:06 PM CDT Darryl Curtis MD LAB MICROBIOLOGY - [facility] ORDERABLES Final Result Performing Organization Address [facility] Co de Phone Number ALEX URIAS [phone] [facility] [place] [address] documented in this encounter Visit Diagnoses Diagnosis Screen for STD (sexually transmitted disease) Screening examination for venereal disease documented in this encounter Additional Health Concerns Infection Onset Date Last Indicated Resolved Time MRSA Comment:L. hip 02/07/13 02/10/2013 02/10/2013 04/10/2021 5:00 A M CDT documented as of this encounter Care Teams Candlemaking Laborer Relationship Specialty [place] [address] [facility] [address] [place] [address] PCP - General Family Medicine 09/02/17 documented as of this encounter
--- OUTSIDE RECORDS SUMMARY | 2024-08-20 22:52 | XMS_ITS | Encounter Summary ---
Author Organization [facility] Address [address] [place] [address] Care Team Providers Care Orthopaedic Nurse Name Role Phone Darryl Curtis MD Primary Care Provide r Reason for Visit * Reason Onset Date Comments Ever-initial request for labs, injections and nurse vi 05/02/2020 Encounter Details Date Type Department Care Team (Late st Contact Info) Description 05/02/2020 Telephone Family Care at [facility] [address] [address] [place] [address] [facility] [address] [place] [address] Ever-initial request for labs, injections and nurse vi Social History Tobacco Use Types Packs/Day Years Used Date Smoking Tobacco: Never Smokeless Tobacco: Never Alcohol Use Standard Drinks/Week Comments No 0 (1 standard drink = 0.6 oz pur e alcohol) Sex and Gender Information Value Date Recorded Sex Assigned at Not on file Legal Sex Male 6:06 PM NUTRITION SERVICES MANAGER Gender Identity Not on file Sexual Orientation Not on file documented as of this encounter Miscellaneous Notes * Telephone Encounter - Katarina Verdin MA - 05/03/2020 10:50 AM CDT Patient is aware. * Telephone Encounter - Darryl Curtis MD - 05/02/2020 7:49 PM CDT He should also make an appointment for a physical. I haven't seen him in 2 years, but I don't want to delay his STD testing waiting for an appointment. * Telephone Encounter - Darryl Curtis MD - 05/02/2020 7:49 PM CDT Let patient know labs are ordered. I ordered a full STD testing panel. It's recommended to test foreverything rather than only one STD. * Telephone Encounter - Angy Haely - 05/02/2020 12:41 PM CDT Initial request for labs, injections, and/or nurse visit: Type of Service Requested: STD Reason for request (reason/symptom): possible exposure to gonorrhea Does patient want to have service performed at practice? Yes If patient wants service performed outside of practice, where (facility name, address, phone, and/or fax or is patient picking up order): n/a Caller???s Callback #: [phone] Additional Comments: patient would like a call for when he can come in and have the lab work done Did you relay expectation for processing (allow up to 24 hours for call back)? yes documented in this encounter Plan of Treatment Not on file documented as of this encounter Results * HIV 1/2 Antibody plus p24 Antigen (05/03/2020 10:51 AM CDT) HIV 1/2 ab + p24 ag Nonreactive Nonreactive [facility] Comment: Nonreactive for HIV-1 antigen and HIV-1/HIV-2 antibodies. No laboratory evidence of HIV infection. If acute HIV infection is suspected, consider testing for HIV-1 RNA. Blood specimen (specimen) 05/03/2020 10:51 AM CDT 05/03/2020 5:06 PM CDT Darryl Curtis MD LAB MICROBIOLOGY - GE NERAL ORDERABLES Final Result Performing Organization Address City/[facility]/ZIP Co de Phone Number ALEX URIAS [phone] [address] [facility] [place] [address] * RPR (05/03/2020 10:51 AM CDT) [facility] RPR Nonreactive Nonreactive [facility] Blood specimen (specimen) 05/03/2020 10:51 AM CDT 05/03/2020 5:06 PM CDT Darryl Curtis MD LAB MICROBIOLOGY - GE NERAL ORDERABLES Final Result Performing Organization Address [facility] de Phone Number ALEX URIAS [address] [address] [facility] [place] [address] * N. gonorrhoeae/C. trachomatis Amplification Urine (05/03/2020 10:51 AM CDT) [facility] C. trachomatis Not detected Not detected [facility] N. gonorrhoeae Not detected Not detected [facility] Comment: Testing performed by the [facility]. This assay detects Chlamydia trachomatis and Neisseria gonorrhoeae by nucleic acid amplification testing (NAAT). This test is approved by the [facility] Food and Drug Administration and the performance characteristics have been verified by the laboratory. The performance characteristics of this test have not been evaluated in women or individuals less than 16 years of age. Urine (None) 05/03/2020 10:5 1 AM CDT 05/03/2020 5:06 PM CDT Darryl Curtis MD LAB MICROBIOLOGY - GE NERAL ORDERABLES Final Result Performing Organization Address [facility] Co de Phone Number ALEX URIAS [phone] [address] [facility] [place] [address] * Hepatitis C antibody (05/03/2020 10:51 AM CDT) Pathologist [facility] Hep C Ab Nonreactive Nonreactive [facility] Comment: Interpretive Data Nonreactive: Antibodies to HCV [...] 10:51 AM CDT 05/03/2020 5:06 PM CDT us Darryl Curtis MD LAB MICROBIOLOGY - [facility] [place] [address] [address] [facility] Department [place] [address] documented in this encounter Visit Diagnoses Diagnosis Screen for STD (sexually transmitted disease)- Primary Screening examination for venereal disease documented in this encounter Additional Health Concerns Infection Onset Date Last Indicated Resolved Time MRSA Comment:L. hip 02/07/13 02/10/2013 02/10/2013 04/10/2021 5:00 A M CDT documented as of this encounter Care Teams Orthopaedic Nurse Relationship Specialty [place] [address] [address] PCP - General Family Medicine 09/02/17 documented as of this encounter
--- OUTSIDE RECORDS SUMMARY | 2024-08-20 22:52 | XMS_ITS | Encounter Summary ---
Author Organization [facility] Address [address] [place] [address] Phone Care Team Providers Care Director Of Clinical Trials Name Role Phone Brando Luong DO Primary Care Provider +1- [phone] Encounter Details Date Type Department Care Team (Late st Contact Info) Description 02/05/2024 2:30 PM CDT Physical Therapy [facility] [address] [place] [id number] Brando Luong DO [address] [place], [place] [id number] Edel Georges PTA [place] Discharge Disposition: Discharged to home or Selfcare [...] of Care - Edel Georges PTA - 02/05/2024 2:30 PM CDT Treatment Note - Electronically signed by: EDEL GEORGES PTA February 05, 2024 SUBJECTIVE: Pt reports his knee is not doing to bad today. Pt states he feels like it is starting to feel better. Pt states his back is more of a problem. Pt states he has been doing the exercises at home and they are going fine. Objective TREATMENT: Refer to PT OP Rehab Therapy Treatment flowsheet for details/minutes. Patient response to new home exercises provided today: Pt appeared challenged by exercises Interventions provided this session: therex Therapist provided Education and Skilled therapy by instructing pt in exercises and correcting form. ASSESSMENT: Patient is not yet demonstrating progress as evidenced by first session of therapy. Pt needed verbal cueing with form for clamshells and appeared very challenged by them. Pt reported increased back pain with single leg bridges.. Patient would benefit from continued skilled interventions, as stated in the plan of care, due to the following functional limitations: limbing stairs, squatting, getting in and out of the car and running. . Preferred Language: Honduran All charges entered today are appropriate and [...] st Contact Info) Description 08/27/2024 11:00 AM FILER REPAIRER Appointment [facility] 1 [place] [address] Brando Luong, [address] [place] [address] Discharge Disposition: Discharged to home or Selfcare 08/27/2024 12:00 PM FILER REPAIRER Appointment [facility] Diagnostic Radiology 1 [place] [address] Brando Luong DO [address] [place] [address] Discharge Disposition: Discharged to home or Selfcare documented as of this encounter Visit Diagnoses Not on filedocumented in this encounter Care Teams Director Of Clinical Trials Relationship Specialty Start Date End Date Brando Luong DO [address] [place] [address] PCP - General Family Medicine 11/01/23 documented as of this encounter
--- OUTSIDE RECORDS SUMMARY | 2024-08-20 22:52 | XMS_ITS | Encounter Summary ---
Author Organization [facility] Care Team Providers Care Axle Turner Name Role Phone Brando Luong DO Primary Care Provider +1- [phone] Encounter Details Date Type Department Care Team (Latest Contact Info) Description 03/21/2024 Travel Social History Tobacco Use Types Packs/Day [...] st Contact Info) Description 08/27/2024 11:00 AM CARBIDE GRINDER [facility] 1 [place] [address] Brando Luong DO [address] [place] [address] Discharge Disposition: Discharged to home or Selfcare 08/27/2024 12:00 PM CARBIDE GRINDER Appointment [facility] Diagnostic Radiology 1 [place] [address] Brando Luong DO [address] [place] [address] Discharge Disposition: Discharged to home or Selfcare documented as of this encounter Visit Diagnoses Not on filedocumented in this encounter Care Teams Axle Turner Relationship Specialty Start Date End Date Brando Luong DO [address] [place] [address] PCP - General Family Medicine 11/01/23 documented as of this encounter
--- OUTSIDE RECORDS SUMMARY | 2024-08-20 22:52 | XMS_ITS | Encounter Summary ---
Author Organization [facility] Address [address] [place] [address] Phone Care Team Providers Care Check Processing Clerk Name Role Phone Brando Luong DO Primary Care Provider +1- [phone] Reason for Visit * PT/OT/ST (Routine) - Closed Specialty Diagnoses / Procedures Referred By Jack t Referred To Contact Rehabilitation Diagnoses Sprain of unspecified collateral ligament of left knee, initial encounter Pain in left knee Brando Luong DO [address] [place] [address] Phone: tel: fax: [facility] at [facility] [address], [address] [address] Phone: tel: fax: Referral ID Status Reason Start Date Expiration Date Visits Re quested Visits Authorized [id number] Closed 1 12 Encounter Details Date Type Department Care Team (Late st Contact Info) Description 02/17/2024 4:30 PM CDT Physical Therapy [facility] [address] [place] [id number] Brando Luong DO [address] [place], [place] [id number] Edel Georges, HAM[place] Left lateral knee pain (Primary Dx) [...] * Plan of Care - Edel Georges, JULIETA - 02/17/2024 4:30 PM CDT Physical Therapy Visit - Electronically signed by: EDEL GEORGES PTA February 17, 2024 SUBJECTIVE: Pt reports overall his hip has not been botjhering him much lately. Pt states his hip started hurting today. Pt reports he has been doing the stretches. Pt reports his knee has been feeling pretty good lately Objective TREATMENT: Refer to PT OP Rehab Therapy Treatment flowsheet for details/minutes. Patient response to new home exercises provided today: Pt appeared challenged by exercises Interventions provided this session: therex Therapist provided Education and Skilled therapy by instructing pt in exercises and correcting form. Exercises -Hip flexor hamstring stretch 3 min B -1/2 kneeling palloff press purple - Antirotation walkouts 10 B Blue -Shoulder extension with marching 10 B blue ASSESSMENT: Patient is demonstrating progress as evidenced by decreased knee pain and overall improvement with function. Pt needed verbal cues to perform exercises properly.. Patient would benefit from continued skilled interventions, as stated in the plan of care, due to the following functional limitations: limbing stairs, squatting, getting in and out of the car and running. . Preferred Language: Montserratian All charges entered today are appropriate and [...] st Contact Info) Description 08/27/2024 11:00 AM STRAIGHT PIN MAKING MACHINE OPERATOR Appointment [facility] MRI 1 [place] [address] Brando Luong DO [address] [place] [address] Discharge Disposition: Discharged to home or Selfcare 08/27/2024 12:00 PM STRAIGHT PIN MAKING MACHINE OPERATOR Appointment [facility] Diagnostic Radiology 1 [place] [address] Brando Luong DO [address] [place] [address] Discharge Disposition: Discharged to home or Selfcare documented as of this encounter Visit Diagnoses Diagnosis Left lateral knee pain- Primary Pain in joint, lower leg documented in this encounter Care Teams Check Processing Clerk Relationship Specialty Start Date End Date Brando Luong DO [address] [place] [place] [address] PCP - General Family Medicine 11/01/23 documented as of this encounter
--- OUTSIDE RECORDS SUMMARY | 2024-08-20 22:52 | XMS_ITS | Encounter Summary ---
Author Organization [facility] Address [address] [facility] [place] [address] Phone Care Team Providers Care Flyer Builder Name Role Phone Brando Luong DO Primary Care Provider +1- [phone] Reason for Visit * PT/OT/ST (Routine) - Closed Specialty Diagnoses / Procedures Referred By Jack t Referred To Contact Rehabilitation Diagnoses Sprain of unspecified collateral ligament of left knee, initial encounter Pain in left knee Brando Luong DO [address] [place] [address] Phone: tel: fax: [facility] at [facility] [address], [address] [address] Phone: tel: fax: Referral ID Status Reason Start Date Expiration Date Visits Re quested Visits Authorized [id number] Closed 1 12 Encounter Details Date Type Department Care Team (Late st Contact Info) Description 03/07/2024 3:45 PM CDT Physical Therapy [facility] [address] [place] [address] Brando Luong DO [address] [place], [place] [id number] Mona Devine, PT [place] Discharge Disposition: Discharged to home or Selfcare Social History Tobacco Use Types Packs/Day Years Used Date Smoking Tobacco: Never Smokeless Tobacco: Never Sex and Gender Information Value Date Recorded Sex Assigned at Not on file Legal Sex Male 4:19 PM CDT Gender Identity Not on file Sexual Orientation Not on file documented as of this encounter Miscellaneous Notes * Plan of Care - NilsonMona, PT - 03/07/2024 3:45 PM CDT Physical Therapy Visit - Electronically signed by: MONA DEVINE, PT March 07, 2024 Subjective SUBJECTIVE: Patient reports he is doing a lot better. He has not really had back or knee pain over the past week but he is not back to trying to do all of his previous activities. He has not tryiing cycling or walking his dog yet. Reports that he is stronger and is learning a lot. OBJECTIVE Observation: Functional Outcomes/Other Observations: Lower Extremity Functional Scale Campbell: 0- Extreme difficulty or Unable to perform 1- Quite a bit of difficulty 2- Moderate difficulty 3- A little bit of difficulty 4- No difficulty A. Any of your usual work, household, or school activities Score: 4 B. Your usual hobbies, recreational, or sporting activities Score: 1 C. Getting in or out of the tub Score: 4 D. Walking between rooms Score: 4 E. Putting on your shoes or socks Score: 4 F. Squatting Score: 3 G. Lifting an object, like a bag of groceries from the floor Score: 4 H. Performing light activities around your home Score: 4 I. Performing heavy activities around your home Score: 3 J. Getting into or out of a car Score: 3 K. Walking 2 blocks Score: 4 L. Walking a mile Score: 2 M. Going up or down 10 stairs (about 1 flight) Score: 3 N. Standing for 1 hour Score: 2 O. Sitting for 1 hour Score: 3 P. Running on even ground Score: 2 Q. Running on uneven ground Score: 2 R. Making sharp turns while running fast Score: 2 S. Hopping Score: 0 T. Rolling over in bed Score: 4 Total Score: 55/80 Interpretation of scores: The lower the score the greater the disability. The minimal detectable change is 9 scale points. The minimally clinically important difference is 9 scale points. Percent of maximal function = (LEFS score) / 80 * 100. Hip/Knee: Strength: All Strength measurements out of 5 unless otherwise noted. Hip Flexion: Left: 4 Right: 4 Hip Extension: Left: 4 Right: 3+ Hip Abduction: Left: 3 Right: 3 Knee Flexion: Left: 5 Right: 5 Knee Extension: Left: 5 Right: 5 Flexibility: Hamstring: Left: -25 Right: -28 Quadriceps: Left: pkb 110 Right: pkb 112 TREATMENT: Learner: patient Readiness: eager Method: explanation and demonstration Refer to PT OP Rehab Therapy Treatment flowsheet for details/minutes. Patient response to new exercises provided today: Pt appeared challenged by exercises Interventions provided this session: therex, manual Therapist provided Education and Skilled therapy by instructing pt in exercises and correcting form. Objective measures were taken and progress reviewed with patient. Exercises - Hip flexor hamstring stretch 3 min B - 1/2 kneeling palloff press purple x10 each way, each foot required cues to increase posterior pelvic tilt - HELD Anti-rotation walkouts 10 B Blue and yellow - Shoulder extension with marching x 15 blue and greenrequired cues to increase core stabilization - Rocker board AP and ML x3 min each required cues to increase glute activation and core stabilization in short foot standing, cues for correction of form - HELD 1/2 Foam tandem balance 1 min x 2 each foot in front - HELD-Half kneeling trunk rotations black band 1 x 15 ea - high steps on 6 in step with 10#kb- cues for hip hinge and to avoid medial collapse - farm carries with single limb stance for 3 sec hold 20 feet x 2 forward and backwards with cues - single limb stances shoulder extension -blue and green- 10 reps bilaterally with cues for correction of form -waiters bow with shoulder extension- 10 reps bilaterally with cues. ASSESSMENT: Patient is making good progress with decreased pain, improved flexibility and improved strength. Alexis has decreased core stability and weakness in his hips, as well as decreased flexibility in his hips. He is not having much pain with daily activity but has not yet returned to active lifestyle including walking his dogs and exercising. Will continue to progress towards return to prior activity. Patient would benefit from continued skilled interventions, as stated in the plan of care, due to the following functional limitations: climbing stairs, squatting, getting in and out of the car and running. . Preferred Language: Gibraltarian All charges entered today are appropriate and separate from each other. PLAN Goals to be achieved by discharge Patient will demonstrate the followin. Increased quadriceps flexibility (prone knee bend) to 120 degrees bilaterally with good lumbar stability to be able to walk up/down stairs with decreased pain. PROGRESS 03/07/24 dcf 2. Increased glute max and med strength to 4+/5 bilaterally to be able to squat and lift objects with no increased pain.PROGRESS 03/07/24 dcf 3. Increased hip extension ROM to 0 degrees bilaterally to to be able to walk up/down stairs with decreased pain. MET 03/07/24 dcf 4. Increased hamstring length to -15 degrees bilaterally to improve ambulation around workplace andhousehold. PROGRESS 03/07/24 dcf 5. Increase LEFS score to 75/80 to show improved activity tolerance.PROGRESS 03/07/24 dcf 6. Patient to be independent with home program to maintain gains made in therapy. Planned Interventions This patient will likely be seen 2x/week for 12visits for the following interventions: - Manual therapy [...] st Contact Info) Description 08/27/2024 11:00 AM CONCESSIONS MANAGER Appointment [facility] MRI 1 [place] [address] rBando Luong, DO [address] [place] [address] Discharge Disposition: Discharged to home or Selfcare 08/27/2024 12:00 PM CONCESSIONS MANAGER Appointment [facility] Diagnostic Radiology 1 [place] [address] Brando Luong, DO [address] [place] [address] Discharge Disposition: Discharged to home or Selfcare documented as of this encounter Visit Diagnoses Not on filedocumented in this encounter Care Teams Flyer Builder Relationship Specialty Start Date End Date Brando Luong DO [address] [address] PCP - General Family Medicine 11/01/23 documented as of this encounter
--- OUTSIDE RECORDS SUMMARY | 2024-08-20 22:52 | XMS_ITS | Encounter Summary ---
Author Organization [facility] Care Team Providers Care Magnetic Prospecting Operator Name Role Phone Brando Luong DO Primary Care Provider +1- [phone] Encounter Details Date Type Department Care Team (Latest Contact Info) Description 02/05/2024 Travel Social History Tobacco Use Types Packs/Day [...] st Contact Info) Description 08/27/2024 11:00 AM ACCOUNTANCY PROFESSOR [facility] 1 [place] [address] Brando Luong DO [address] [place] [address] Discharge Disposition: Discharged to home or Selfcare 08/27/2024 12:00 PM ACCOUNTANCY PROFESSOR Appointment [facility] Diagnostic Radiology 1 [place] [address] Brando Luong DO [address] [place] [address] Discharge Disposition: Discharged to home or Selfcare documented as of this encounter Visit Diagnoses Not on filedocumented in this encounter Care Teams Magnetic Prospecting Operator Relationship Specialty Start Date End Date Brando Luong DO [address] [place] [address] PCP - General Family Medicine 11/01/23 documented as of this encounter
--- OUTSIDE RECORDS SUMMARY | 2024-08-20 22:52 | XMS_ITS | Encounter Summary ---
Author Organization [facility] Address [address] [facility] [place] [address] Phone Care Team Providers Care Vacuum Truck Driver Name Role Phone Brando Luong DO Primary Care Provider +1- [phone] Reason for Visit * PT/OT/ST (Routine) - Closed Specialty Diagnoses / Procedures Referred By Jack t Referred To Contact Rehabilitation Diagnoses Sprain of unspecified collateral ligament of left knee, initial encounter Pain in left knee Brando Luong DO [address] [place] [address] Phone: tel: fax: [facility] [address], [place] [address] [address] Phone: tel: fax: Referral ID Status Reason Start Date Expiration Date Visits Re quested Visits Authorized [id number] Closed 1 12 Encounter Details Date Type Department Care Team (Late st Contact Info) Description 03/21/2024 3:45 PM CDT Physical Therapy [facility] [address] [place] [id number] Brando Luong DO [address] [place], [place] [id number] Mona Devine, PT [place] Discharge Disposition: Discharged [...] Miscellaneous Notes * Plan of Care - Mona Devine, PT - 03/21/2024 3:45 PM CDT Physical Therapy Visit - Electronically signed by: MONA DEVINE, PT March 21, 2024 Subjective SUBJECTIVE: Patient reports that he was feeling a lot better so he tried running and doing a lot of steps and it flared it up a little but not bad. States it hurt while he was doing it but no lingering bad affects so he felt pretty good about things. Objective TREATMENT: Refer to PT OP Rehab Therapy Treatment flowsheet for details/minutes. Home Exercises distributed via handout. Neuro reeducation: 1. Rocker board ap and ml x 3 min each direction with cues for glut activation 2. High steps on 6 in step with 10#kb 10 x 2 with cues for hip hinge 3. Jose steps on 6 in step with foam pad x 10 reps bilaterally with cues 4. Marching shoulder extension with blue and green tubing x 15 reps with cues for hip hinge and to avoid trunk lean 5 shoulder extension with single limb stance x 10 reps each leg with blue and green tband 6. Monster walk fwd and bwd with black x 20 feet x 2 with verbal cues 7. Split squats with no resistance x 2 steps of 10 reps with cues to avoid anterior translation of the femur and cues to avoid medial collapse. Therapeutic exercises: 1. Elliptical x 6 min level 3 2. Side lying glut med x 2 sets bilaterally with black tband Interventions provided this session: neuro reeducation and therapeutic exercises. Therapist provided Education and Skilled therapy by identifying substitutions during exercises and correction of form. . ASSESSMENT: Patient is making good progress with decreased pain, improved flexibility and improved strength. Alexis has decreased core stability and weakness in his hips, as well as decreased flexibility in his hips. He is starting to progress with return to prior activity and attempted to return to running but did have some increase in pain and was instructed to start with more gradual progression of distance. Patient would benefit from continued skilled interventions, as stated in the plan of care, due to the following functional limitations: climbing stairs, squatting, getting in and out of the car and running. . Preferred Language: Turkish All charges entered today are appropriate and [...] st Contact Info) Description 08/27/2024 11:[address] SCAN TECHNOLOGIST [facility] [place] [id number] Brando Luong DO [facility] [place] [address] Discharge Disposition: Discharged to home or Selfcare 08/27/2024 12:[address] SCAN TECHNOLOGIST [facility] 1 [place] [address] Brando Luong DO [address] [place] [address] Discharge Disposition: Discharged to home or Selfcare documented as of this encounter Visit Diagnoses Not on filedocumented in this encounter Care Teams Vacuum Truck Driver Relationship Specialty Start Date End Date Brando Luong DO [address] [place] [address] PCP - General Family Medicine 11/01/23 documented as of this encounter
--- OUTSIDE RECORDS SUMMARY | 2024-08-20 22:52 | XMS_ITS | Encounter Summary ---
Author Organization [facility] Address [address] [place] [address] Care Team Providers Care Infection Prevention Coordinator Name Role Phone Darryl Curtis MD Primary Care Provide r Encounter Details Date Type Department Care Team (Latest Contact Info) Description 12/15/2022 7:00 PM CDT - 12/15/2022 11:59 PM CDT Hospital Encounter [address] [id number] Exposure to STD Discharge Disposition: Discharge to home or self care Social History Tobacco Use Types Packs/Day Years Used Date Smoking Tobacco: Never Smokeless Tobacco: Never Alcohol Use Standard Drinks/Week Comments No 0 (1 standard drink = 0.6 oz pur e alcohol) Sex and Gender Information Value Date Recorded Sex Assigned at Not on file Legal Sex Male 6:06 PM PILE HEADER Gender Identity Not on file Sexual Orientation Not on file documented as of this encounter Discharge Disposition Disposition Code Departure Means Destination Discharge to home or self care documented in this encounter Miscellaneous Notes * Result Encounter Note - Lalitha Estrada PA - 12/15/2022 11:59 PM CDT Please alert patient that he tested negative for gonorrhea and chlamydia. * Result Encounter Note - Morgan Nuno MA - 12/15/2022 11:59 PM CDT Spoke to patient regarding results. * Result Encounter Note - Kaylan Pérez NP - 12/15/2022 11:59 PM CDT Call pt regarding normal result- Trich * Result Encounter Note - Brenda Hull MA - 12/15/2022 11:59 PM CDT LMTRC * Result Encounter Note - Lona Jackson MA - 12/15/2022 11:59 PM CDT Patient notified of test result documented in this encounter Plan of Treatment Not on file documented as of this encounter Procedures Procedure Name Priority Date/Time Associated Diagnosis Comments N. GONORRHOEAE/C. TRACHOMATIS AMPLIFICATION Routine 12/15/2022 7:00 PM CDT Exposure to STD TRICHOMONAS VAGINALIS PCR Routine 12/15/2022 7:00 PM CDT documented in this encounter Results * Trichomonas vaginalis PCR Urine (12/15/2022 7:00 PM CDT) Trichomonas DNA Negative Negative [facility] Comment: ADDITIONAL INFORMATION This test has been modified from the nailer hand's instructions. Its performance characteristics were determined by [facility] in a manner consistent with CLIA requirements. This test has not been cleared or approved by the U.S. Food and Drug Administration. Test Performed by: [facility] - [address] [address] Organ Pipe Finisher: Aleksandr Barnett M.D. Ph.D.; CLIA# [id number] Source; URINE CERNER Urine 12/15/2022 7:00 PM CDT 12/15/2022 9:49 PM CDT Kaylan Pérez NP LAB MICROBIOLOGY - GE NERAL ORDERABLES Final Result Performing Organization Address [facility] Co de Phone Number ALEX URIAS [phone] Department [place] [address] * N. gonorrhoeae/C. trachomatis Amplification Urine (12/15/2022 7:00 PM CDT) C. trachomatis Not detected Not detected ALEX N. gonorrhoeae Not detected Not detected ALEX URIAS Comment: Testing performed by the [facility]. This assay detects Chlamydia trachomatis and Neisseria gonorrhoeae by nucleic acid amplification testing (NAAT). This test is approved by the [facility] Food and Drug Administration and the performance characteristics have been verified by the laboratory. The performance characteristics of this test have not been evaluated in women or individuals less than 16 years of age. Urine (None) 12/15/2022 7:00 PM CDT 12/15/2022 9:49 PM CDT Kaylan Pérez NP LAB MICROBIOLOGY - GE NERAL ORDERABLES Final Result Performing Organization Address [facility] Co de Phone Number ALXE URIAS [phone] [address] [place] [address] documented in this encounter Visit Diagnoses Diagnosis Exposure to STD documented in this encounter Care Teams Infection Prevention Coordinator Relationship Specialty [place] [address] [address] [facility] [address] [place] [address] PCP - General Family Medicine 09/02/17 documented as of this encounter
--- OUTSIDE RECORDS SUMMARY | 2024-08-20 22:52 | XMS_ITS | Encounter Summary ---
Author Organization [facility] Address [address] [facility] [place] [address] Phone Care Team Providers Care Development Planner Name Role Phone Brando Luong DO Primary Care Provider +1- [phone] Reason for Visit * PT/OT/ST (Routine) - Closed Specialty Diagnoses / Procedures Referred By Jack t Referred To Contact Rehabilitation Diagnoses Sprain of unspecified collateral ligament of left knee, initial encounter Pain in left knee Brando Luong DO [address] [place] [address] Phone: tel: fax: [facility] [address], [place] [address] [address] Phone: tel: fax: Referral ID Status Reason Start Date Expiration Date Visits Re quested Visits Authorized [id number] Closed 1 12 Encounter Details Date Type Department Care Team (Late st Contact Info) Description 02/01/2024 3:45 PM CDT Physical Therapy [facility] [address], [address] [place] [id number] Brando Luong DO [address] [place] [address] Lupe Devine, PT [place] Knee pain (Primary Dx); Weakness of both hips; Abnormal gait; Abnormal posture Discharge Disposition: Discharged to home or Selfcare [...] of Care - Lupe Devine, PT - 02/01/2024 3:45 PM CDT Initial Evaluation - Electronically signed by: ROSEMARY GARCIA, Student February 01, 2024 SUBJECTIVE: Onset Date: September 04, 2023 Primary complaint: Left lateral knee pain Patient Narrative: Patient stated that he was playing basketball and jumped up, when he landed he heard a pop in his left knee and had lateral knee pain. He said that the knee started swelling that day and he couldn't bear weight for a week. He rested his knee, used ice, and elevation which alleviated the swelling, but the pain has been intermittent since his injury date. He said that since his date of injury, his pain has lessened overtime. He has gotten x rays which did not show any issues, and he is wanting to get an MRI. 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 He reports that he has had surgery on both his knees, on his right knee he has had a fractured tibia, on his left knee he has had ACL and PCL repair as well as meniscus and cartilage damage. He stated that standing for longer periods of time is more painful than sitting for longer periods of time. 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 - Current level of function: able to go to work and cycle - Prior level of function: running, cycling, no pain problems at work, stand or sit for long periods of time Symptom Location: lateral knee sometimes behind the knee 1) Current pain 3/10 - Intermittent, described as dull, ache - Range 2/10 to 7/10 - Aggravating factors: stairs, squatting, impact - Easing factors: rest after it gets irritated Patient is Right side dominant. 24 hour symptom behavior/sleep: not interrupting sleep The patient has no past medical history on file. Red flags: none present Prior treatment attempted: foam roll, ice, ITB stretching, Ultrasound therapy, LASER therapy, E-stim Coordination of care: Patient denies prior therapy this year for this or any other condition. Patient is not currently seeking other concurrent treatment. 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 He stated that his knee pain is not currently affecting his job. Patient is a runner and cycler: he currently cannot run due to his knee pain, but is able to cycle. He said he was running 1-2 miles twice a week and cycling 7 miles during the week and 30 miles on the weekend Home Environment: - Patient lives in a house with 7 stairs to enter. -There are 3 levels within home, bedroom on upper level and dogs' beds and food are in the basement - Patient lives: alone. Patient's goal for Physical Therapy: to get an MRI Patient learning style: - Barriers to learning: no barriers - Preferred learning style: listening and reading Written attendance policy reviewed: Yes Next appointment with referring provider: 02/22/24 OBJECTIVE Observation: Functional Outcomes/Other Observations: Lower Extremity Functional Scale Campbell: 0- Extreme difficulty or Unable to perform 1- Quite a bit of difficulty 2- Moderate difficulty 3- A little bit of difficulty 4- No difficulty A. Any of your usual work, household, or school activities Score: 4 B. Your usual hobbies, recreational, or sporting activities Score: 3 C. Getting in or out of the tub Score: 4 D. Walking between rooms Score: 4 E. Putting on your shoes or socks Score: 4 F. Squatting Score: 3 G. Lifting an object, like a bag of groceries from the floor Score: 3 H. Performing light activities around your home Score: 4 I. Performing heavy activities around your home Score: 3 J. Getting into or out of a car Score: 2 K. Walking 2 blocks Score: 2 L. Walking a mile Score: 1 M. Going up or down 10 stairs (about 1 flight) Score: 2 N. Standing for 1 hour Score: 1 O. Sitting for 1 hour Score: 4 P. Running on even ground Score: 2 Q. Running on uneven ground Score: 1 R. Making sharp turns while running fast Score: 0 S. Hopping Score: 2 T. Rolling over in bed Score: 4 Total Score: 49/80 Objective Data: Lateral Step Down: unable to perform- had medial collapse of femur and hip drop Squat: increased toe flexion, increased trunk flexion Gait: Increased pronation, increased toe flexion, decreased push off, knee vaglus, increased trunk rotation, decreased step length and decreased hip extension Hip/Knee: Range of Motion: All Range of Motion documentation below is measured in degrees unless otherwise indicated. L Hip Extension: PROM: -15 R Hip Extension: PROM: -10 L Knee Flexion: AROM: 121 R Knee Flexion: AROM: 118 L Knee Extension: AROM: 2 R Knee Extension: AROM: 4 Strength: All Strength measurements out of 5 unless otherwise noted. Hip Flexion: Left: 5 Right: 5 Hip Extension: Left: 3 Right: 4 Hip Abduction: Left: 3- Right: 3- Knee Flexion: Left: 5 Right: 5 Knee Extension: Left: 5 Right: 5 Flexibility: Hamstring: Left: -28 Right: -32 Quadriceps: Left: 104 Right: 105 pain in right SIJ Gastroc: Left: -5 Right: -3 Special Tests: + Thessalys on the Left for medial meniscus - Appleys Distraction on the Left Knee: Positive for Left: Varus @ 0 deg Negative for Left: Valgus @ deg, Valgus @ 30 deg, Varus @ 30 deg, Apley's Compression and Ileana Posture/Palpation: Posture comments: Pronation bilaterally Medial rotation Genu valgus bilaterally Increased lumbar lordosis TREATMENT: Learner: patient Readiness: eager Method: explanation Patient was educated in the overall POC, the findings during the evaluation, and the goals for PT. Patient was educated in [facility] attendance policy for therapy and signed agreement to abide by the policy. Patient was in agreement with the overall POC. Patient was educated in the anatomy of the knee and how the joints above and below can affect knee pain. He was educated on how his lack of hip ROM and increased pronation can lead to increased knee valgus. Patient was educated on how his posture and gait can lead to increased pain in his knee. He was educated on the results of the specials tests. Neuromuscular Re-Ed: - Half Kneeling Palloff Press Blue TB x10 each side ASSESSMENT: Therapy Diagnosis: lateral knee pain, gait abnormality Medical Diagnosis: Sprain of unspecified collateral ligament of left knee, initial encounter, pain in left knee Rahat Boswell is a 38 y.o. patient referred to Physical Therapy with deficits noted including impairments of decreased strength in glute med, decreased range of motion of hips bilaterally, increasedpain in left knee, postural faults, and gait deviation which contribute to the following areas of functional restriction or limitation climbing stairs, squatting, getting in and out of the car and run kristi. He is also currently having pain and issues with his right SIJ (getting treatment at work) which may affect his ability to perform some of the exercises in therapy. Clinical impression at this time: Patient will benefit from ongoing skilled Physical Therapy intervention. Rehab potential: good. Complexities that are a barrier to service: no foreseeable barriers Preferred Language: Honduran All charges entered today [...] patient and the patient consented to treatment.. Treatment provided jointly by Rosemary Garcia SPTand Lupe Devine PT , with qualified caregiver directing care through skilled judgment and taking responsibility for assessment and treatment. I have read and agree with student documentation by Rosemary Garcia SPT on this date. Review of documentation includes Note, Doc flow sheet and associated functions to support documentation. I was presentand actively involved in all aspects of care. documented in this encounter Plan of Treatment Upcoming Encounters Date Type Department Care Team (Late st Contact Info) Description 08/27/2024 11:00 AM FIRST AID TEACHER [facility] [place] [address] Brando Luong DO [address] [place] [address] Discharge Disposition: Discharged to home or Selfcare 08/27/2024 12:00 PM FIRST AID TEACHER Appointment [facility] Diagnostic Radiology [address] [place] [address] Brando Luong DO [address] [place] [address] Discharge Disposition: Discharged to home or Selfcare documented as of this encounter Visit Diagnoses Diagnosis Knee pain- Primary Pain in joint, lower leg Weakness of both hips Abnormal gait Abnormality of gait Abnormal posture documented in this encounter Care Teams Development Planner Relationship Specialty Start Date End Date Brando Luong DO [address] [place] [address] PCP - General Family Medicine 11/01/23 documented as of this encounter
--- OUTSIDE RECORDS SUMMARY | 2024-08-20 22:52 | XMS_ITS | Encounter Summary ---
Author Organization [facility] Care Team Providers Care Outcomes Analyst Name Role Phone Brando Luong DO Primary Care Provider +1- [phone] Encounter Details Date Type Department Care Team (Latest Contact Info) Description 02/01/2024 Travel Social History Tobacco Use Types Packs/Day [...] st Contact Info) Description 08/27/2024 11:00 AM HUB INVENTORY SPECIALIST [facility] [place] [address] Brando Luong DO [address] [place] [address] Discharge Disposition: Discharged to home or Selfcare 08/27/2024 12:00 PM HUB INVENTORY SPECIALIST Appointment [facility] Diagnostic Radiology [address] [place] [address] Brando Luong DO [address] [place] [address] Discharge Disposition: Discharged to home or Selfcare documented as of this encounter Visit Diagnoses Not on filedocumented in this encounter Care Teams Outcomes Analyst Relationship Specialty Start Date End Date Brando Luong DO [address] [place] [address] PCP - General Family Medicine 11/01/23 documented as of this encounter
--- OUTSIDE RECORDS SUMMARY | 2024-08-20 22:52 | XMS_ITS | Encounter Summary ---
Author Organization [facility] Address [address] [place] [address] Phone Care Team Providers Care Perfect Bind Machine Operator Name Role Phone Myah Luongn Shai CHEUNG Primary Care Provider +1- [phone] Reason for Visit * Reason Comments std testing Encounter Details Date Type Department Care Team (Latest Contact Info) Description 11/01/2023 4:25 PM CDT [facility] [place] [address] [place] [address] Lizzeth Flores, CLINICAL ANALYST, LEGAL PROJECT MANAGER [address] [place] [address] Screen for STD (sexually transmitted disease) (Primary Dx) Discharge Disposition: Discharged to home or Selfcare Social History Tobacco Use Types Packs/Day Years Used Date Smoking Tobacco: Never Smokeless Tobacco: Never Tobacco Cessation:Counseling Given: Not Answered Sex and Gender Information Value Date Recorded Sex Assigned at Not on file Legal Sex Male 4:19 PM CDT Gender Identity Not on file Sexual Orientation Not on file documented as of this encounter Last Filed Vital Signs Vital Sign Reading Time Taken Comments Blood Pressure 106/80 11/01/2023 4:32 PM CDT Pulse 97 11/01/2023 4:32 PM CDT Temperature 36.6 ??C (97.9 ??F) 11/01/2023 4:32 PM CD T Respiratory Rate 18 11/01/2023 4:32 PM CDT Oxygen Saturation 97% 11/01/2023 4:32 PM CDT Inhaled Oxygen Concentration - - Weight 113.4 kg (250 lb) 11/01/2023 4:32 PM CDT Height - - Body Mass Index - - documented in this encounter Patient Instructions * Patient Instructions* Lizzeth Flores APRN, CNP - 11/01/2023 4:25 PM CDT Care as instructed on AVS If medication was prescribed it was sent to the pharmacy. Take all medication as prescribed. Do not skip a dose and take until completed. Follow up with PCP if the symptoms do not improve Go to the ER if symptoms become severe * Attachments The following attachments cannot be sent through Care Everywhere. * Preventing Sexually Transmitted Infections Adult (Samoan) documented in this encounter Progress Notes * Amy Dunn RMA - 11/01/2023 4:25 PM CDT Rahat Boswell complains of Pt is being seen for routine STD testing. Pt declines any symptoms. Today's Review of Systems Skin: STD testing * Lizzeth Flores APRN, CNP - 11/01/2023 4:25 PM CDT HPI: Rahat Boswell is a 37 y.o. male in the [facility] care today for routine STD testing. He is asymptomatic and denies any exposure to STD Smoker: No He has had 1 partner in the last 30 days. He is unsure if his partner has other partners Past, family, or social history was noted There is no problem list on file for this patient. ROS: Review of Systems Constitutional: Negative for chills and fever. Genitourinary: Negative. All other systems reviewed and are negative. PE: BP 106/80 (BP Location: Right Arm, BP Position: Sitting, BP Cuff Size: Regular) Pulse 97 Temp 97.9 ??F (36.6 ??C) (Temporal) Resp 18 Wt 250 lb (113.4 kg) SpO2 97% Physical Exam Vitals and nursing note reviewed. Constitutional: General: He is not in acute distress. Appearance: Normal appearance. He is normal weight. He is not ill-appearing. Neurological: Mental Status: He is alert. ASSESSMENT/PLAN: 1. Screen for STD (sexually transmitted disease) - CHLAMYDIA & GC DNA PROBE - HERPES SIMPLEX 1 & 2 ANTIBODIES IGG; Future - HIV 1 & 2 ANTIBODY & ANTIGEN SCREEN; Future - HEPATITIS PANEL ACUTE (AHP) - SYPHILIS IGG/IGM W/REFLEX - HERPES SIMPLEX 1 & 2 ANTIBODIES IGG - HIV 1 & 2 ANTIBODY & ANTIGEN SCREEN AVS from today was printed, discussed with patient/family and given to patient/family Patient Instructions Care as instructed on AVS If medication was prescribed it was sent to the pharmacy. Take all medication as prescribed. Do not skip a dose and take until completed. Follow up with PCP if the symptoms do not improve Go to the ER if symptoms become severe Chief complaint and all history documented by ancillary staff were reviewed and verified, with additions or corrections, as appropriate. * Amy Dunn RMA - 11/01/2023 4:25 PM CDT Per order of Lizzeth Flores APN a lab draw was done for STD testing. A total of 3 tubes via venipuncture was drawn. Pt tolerated well. Labs were sent to [facility] Lab. Per order of Lizzeth Flores APN a urine was collected for STD testing. Lab was sent to [facility] Lab. documented in this encounter Plan of Treatment Upcoming Encounters Date Type Department Care Team (Late st Contact Info) Description 08/27/2024 11:00 AM DOOR SERVICEMAN Appointment [facility] MRI [address] [place] [address] Brando Luong DO [address] [place] [address] Discharge Disposition: Discharged to home or Selfcare 08/27/2024 12:00 PM DOOR SERVICEMAN Appointment [facility] Diagnostic Radiology 1 [facility] [place] [address] Brando Luong, [address] [place] [address] Discharge Disposition: Discharged to home or Selfcare documented as of this encounter Procedures Procedure Name Priority Date/Time Associated Diagnosis Comments HIV 1 & 2 ANTIBODY & ANTIGEN SCREEN Routine 11/01/2023 5:04 PM CDT Screen for STD (sexually transmitted disease) CHLAMYDIA & GC DNA PROBE > 12 Routine 11/01/2023 5:04 PM CDT Screen for STD (sexually transmitted disease) SYPHILIS IGG/IGM W/REFLEX Routine 11/01/2023 5:04 PM CDT Screen for STD (sexually transmitted disease) HSV TYPE II IGG ANTIBODY Routine 11/01/2023 5:04 PM CDT Screen for STD (sexually transmitted disease) HSV TYPE I IGG ANTIBODY Routine 11/01/2023 5:04 PM CDT Screen for STD (sexually transmitted disease) HERPES SIMPLEX 1 & 2 ANTIBODIES IGG Routine 11/01/2023 5:04 PM CDT Screen for STD (sexually transmitted disease) HEPATITIS PANEL ACUTE (AHP) Routine 11/01/2023 5:04 PM CDT Screen for STD (sexually transmitted disease) CHLAMYDIA & GC DNA PROBE Routine 11/01/2023 5:04 PM CDT Screen for STD (sexually transmitted disease) documented in this encounter Results * HSV TYPE II IGG ANTIBODY (11/01/2023 5:04 PM CDT) HSV TYPE 2 IGG AB >8.0 AI 11/02/2023 11:[address] [facility] Comment: <0.9 Negative. ??No detectable HSV-2 IgG antibody. 0.9 - 1.0 Equivocal >=1.1 Positive Antibody testing was performed by multiplex flow immunoassay on the nuevoStage platform. Blood Venipuncture / Unknown 11/01/2023 5:04 PM CDT 11/01/2023 5:05 PM CDT Lizzeth Flores CLINICAL ANALYST, LEGAL PROJECT MANAGER CHEMISTRY ORDERABLE S Final Result Performing Organization Address [facility] de Phone Number [facility] [address] [place] [address], [place] * HSV TYPE I IGG ANTIBODY (11/01/2023 5:04 PM CDT) Pathologist [facility] HSV TYPE 1 IGG AB >8.0 AI 11/02/2023 11:55 PM CDT [facility] Comment: <0.9 Negative. ??No detectable HSV-1 IgG antibody. 0.9 - 1.0 Equivocal >=1.1 Positive Blood Venipuncture / Unknown 11/01/2023 5:04 PM CDT 11/01/2023 5:05 PM CDT Lizzeth Flores CLINICAL ANALYST, LEGAL PROJECT MANAGER CHEMISTRY ORDERABLE S Final Result Performing Organization Address [facility] Phone Number [facility] [address] [place] [address], [place] * CHLAMYDIA & GC DNA PROBE > 12 (11/01/2023 5:04 PM CDT) Pathologist [facility] CHLAMYDIA DNA NEGATIVE NEGATIVE 11/03/2023 11:19 AM CDT [facility] Comment: Presumed negative for C. trachomatis. ??A negative result does not preclude C. trachomatis infection because results are dependent on adequate specimen collection, absence of inhibitors, and sufficient DNA to be detected. This test was performed using Polymerase Chain Reaction (PCR) on the [employer] 4800 System. GC DNA NEGATIVE NEGATIVE 11/03/2023 11:19 AM CDT [facility] Comment: Presumed negative for N. gonorrhoeae. ??A negative result does not preclude N. gonorrhoeae infection because results are dependent on adequate specimen collection, absence of inhibitors, and sufficient DNA to be detected. This test was performed using Polymerase Chain Reaction (PCR) on the [employer]ay 4800 System. Other URINE / Unknown Non-Phlebotomy Collection / Unknown 11/01/2023 5:04 PM CDT 11/01/2023 5:05 PM CDT us Lizzeth Flores APRN, CNP MICROBIOLOGY - GENE RAL ORDERABLES Final Result Performing Organization Address [facility] Co de Phone Number [facility] [address] [place] [address], [place] * SYPHILIS IGG/IGM W/REFLEX (11/01/2023 5:04 PM CDT) [facility] SYPHILIS IGG/IGM Nonreactive Nonreactive 11/02/2023 11:55 PM CDT [facility] Comment: No serologic evidence of infection to Treponema pallidum (syphilis). Repeat testing may be considered in patients with suspected acute or primary syphilis in 2 to 4 weeks. Antibody testing was performed by multiplex flow immunoassay on the nuevoStage platform. Blood Venipuncture / Unknown 11/01/2023 5:04 PM CDT 11/01/2023 5:05 PM CDT us Lizzeth Flores APRN, CNP IMMUNOLOGY ORDERABL ES Final Result Performing Organization Address [facility] de Phone Number [facility] [address] [place] [address], [place] * HEPATITIS PANEL ACUTE (AHP) (11/01/2023 5:04 PM CDT) [facility] HEPATITIS A IGM ANTIBODY NON DETECTED NON DETECTED [facility] ARCH [id number] 11/02/2023 10:41 PM CDT [facility] Comment: IGM Antibodies to HAV not detected. ??Does not exclude early acute or recovered HAV infection. HEP B CORE AB (IGM) NON DETECTED NON DETECTED [facility] ARCH [id number] 11/02/2023 10:41 PM CDT [facility] Comment:IGM anti-HBC not det ected. Does not exclude the possibility of exposure to or infection with HBV. HEPATITIS B SURFACE ANTIGEN NON DETECTED NON DETECTED [facility] ARCH [id number] 11/02/2023 10:41 PM CDT [facility] Comment:A nonreactive test r esult does not exclude the possibility of exposure to or infection with Hepatitis B virus. A nonreactive test result in individuals with prior exposure to hepatitis B may be due to antigen levels below the detection limit of this assay or lack of antigen reactivity to the antibodies in this assay. hepatitis C antibody 0.09 <1 S/CO [facility] ARCH [id number] B 11/02/2023 10:41 PM CDT [facility] Comment: Signal/Cutoff ratio ??< 0.79 is Nondetected Signal/Cutoff ratio 0.80-0.99 is Grayzone Signal/Cutoff ratio > 0.99 is Detected Supplemental assays are recommended if signal/cutoff ratio is >/=1.00. ??Signal/cutoff ratio result >/= 5.00 is 97% predictive of positivity for recombinant immunoblot assay (RIBA) and will be reported to the [place] Department [facility] Public [facility] as required. Blood Venipuncture / Unknown 11/01/2023 5:04 PM CDT 11/01/2023 5:05 PM CDT us Lizzeth Flores APRN, CNP HEMATOLOGY ORDERABL ES Final Result Performing Organization Address City/[facility] Co de Phone Number [facility] [address] [place] [address], * HIV 1 & 2 ANTIBODY & ANTIGEN SCREEN (11/01/2023 5:04 PM CDT) HIV 1 & 2 ANTIBODY & ANTIGEN SCREEN NON DETECTED NON DETECTED [facility] ARCH [id number] 11/02/2023 10:41 PM CDT [facility] Blood Venipuncture / Unknown 11/01/2023 5:04 PM CDT 11/01/2023 5:05 PM CDT us Lizzeth Flores APRN, LEGAL PROJECT MANAGER LAB SEND OUTS Fin al Result [facility] [address] [place] [address], documented in this encounter Visit Diagnoses Diagnosis Screen for STD (sexually transmitted disease)- Primary Screening examination for venereal disease documented in this encounter Care Teams Perfect Bind Machine Operator Relationship Specialty Start Date End Date Brando Luong DO [address] [place] [address] PCP - General Family Medicine 11/01/23 documented as of this encounter
--- OUTSIDE RECORDS SUMMARY | 2024-08-20 22:52 | XMS_ITS | Encounter Summary ---
Author Organization [facility] Address [address] [place] [address] Phone Care Team Providers Care Enrollment Nurse Name Role Phone Brando Luong DO Primary Care Provider +1- [phone] Reason for Visit * PT/OT/ST (Routine) - Closed Specialty Diagnoses / Procedures Referred By Jack t Referred To Contact Rehabilitation Diagnoses Sprain of unspecified collateral ligament of left knee, initial encounter Pain in left knee Brando Luong DO [address] [place] [place] [address] Phone: tel: fax: [facility] [address], [place] [address] [address] Phone: tel: fax: Referral ID Status Reason Start Date Expiration Date Visits Re quested Visits Authorized [id number] Closed 1 12 Encounter Details Date Type Department Care Team (Late st Contact Info) Description 02/19/2024 7:45 AM CDT Physical Therapy [facility] [address], [address] [place] [address] Brando Luong DO [address] [employer] [place], [place] [address] Lupe Devine, PT [place] Discharge Disposition: Discharged to [...] of Care - Lupe Devine, PT - 02/19/2024 7:45 AM CDT Physical Therapy Visit - Electronically signed by: PEBBLES GARCIA, Student February 19, 2024 SUBJECTIVE: Patient reports that he was sore after his last visit and had slight knee pain . He said that his low back on his right side and his left hip have been sore. He said that he has been able to do his exercises and stretches at home which he believes is helping. He reported that after his session hispain was decreased and he felt less stiff. Objective TREATMENT: Learner: patient Readiness: eager Method: explanation and demonstration Refer to PT OP Rehab Therapy Treatment flowsheet for details/minutes. Patient response to new exercises provided today: Pt appeared challenged by exercises Interventions provided this session: therex Therapist provided Education and Skilled therapy by instructing pt in exercises and correcting form. Exercises - HELD Hip flexor hamstring stretch 3 min B - 1/2 kneeling palloff press purple x10 each way, each foot - Antirotation walkouts 10 B Blue - Shoulder extension with marching 10 B blue required cues to increase core stabilization - Rockerboard AP and ML x3 min each required cues to increase glute activation and core stabilization - 1/2 Foam tandem balance 1 min x 2 each foot in front Manual Therapy: Psoas Release , muscle energy to correct anterior rotation on the right ASSESSMENT: Patient is demonstrating progress as evidenced by decreased knee pain and increased tolerance of exercise. Patient had increased ROM and reported he felt less stiff following psoas release. Patient required verbal cues throughout and was able to correct his form following prompting. Patient would benefit from continued skilled interventions, as stated in the plan of care, due to the following functional limitations: limbing stairs, squatting, getting in and out of the car and running. . Preferred Language: Danish All charges entered today are appropriate and [...] consented to treatment.. Treatment provided jointly by Pebbles ALEJOand Lupe Devine PT , with qualified caregiver directing care through skilled judgment and taking responsibility for assessment and treatment. I have read and agree with student documentation by Pebbles Garcia SPT on this date. Review of documentation includes Note, Doc flow sheet and associated functions to support documentation. I was presentand actively involved in all aspects of care. documented in this encounter Plan of Treatment Upcoming Encounters Date Type Department Care Team (Late st Contact Info) Description 08/27/2024 11:00 AM MEDIA MANAGER Appointment [facility] MRI 1 [facility] [place] [address] Brando Luong DO [address] [place] [address] Discharge Disposition: Discharged to home or Selfcare 08/27/2024 12:00 PM MEDIA MANAGER [facility] 1 [place] [address] Brando Luong DO [address] [place] [address] Discharge Disposition: Discharged to home or Selfcare documented as of this encounter Visit Diagnoses Not on filedocumented in this encounter Care Teams Enrollment Nurse Relationship Specialty Start Date End Date Brando Luong DO [address] [place] [address] PCP - General Family Medicine 11/01/23 documented as of this encounter
--- OUTSIDE RECORDS SUMMARY | 2024-08-20 22:52 | XMS_ITS | Encounter Summary ---
Author Organization [facility] Address [address] [facility] [place] [address] Phone Care Team Providers Care Manager Mail Name Role Phone Brando Luong DO Primary Care Provider +1- [phone] Reason for Visit * PT/OT/ST (Routine) - Closed Specialty Diagnoses / Procedures Referred By Jack t Referred To Contact Rehabilitation Diagnoses Sprain of unspecified collateral ligament of left knee, initial encounter Pain in left knee Brando Luong DO [address] [place] [address] Phone: tel: fax: [facility] at [facility] [address], [place] [address] [address] Phone: tel: fax: Referral ID Status Reason Start Date Expiration Date Visits Re quested Visits Authorized [id number] Closed 1 12 Encounter Details Date Type Department Care Team (Late st Contact Info) Description 02/22/2024 3:45 PM CDT Physical Therapy [facility] [address], [address] [address] [place] [address] Brando Luong DO [address] [place], [place] [id number] Lupe Devine, PT [place] Discharge Disposition: Discharged [...] of Care - Lupe Devine, PT - 02/22/2024 3:45 PM CDT Physical Therapy Visit - Electronically signed by: PEBBLES GARCIA, Student February 22, 2024 SUBJECTIVE: Patient stated that his knee is feeling better and he has had minimal hip and back pain since his last visit. He said that the psoas release was helpful and he felt less stiff after it. Objective TREATMENT: Learner: patient Readiness: eager Method: [...] cues to increase posterior pelvic tilt - Antirotation walkouts 10 B Blue and yellow - Shoulder extension with marching x 15 blue required cues to increase core stabilization - Rockerboard AP and ML x3 min each required cues to increase glute activation and core stabilization - HELD 1/2 Foam tandem balance 1 min x 2 each foot in front Manual Therapy: Psoas Release on right- increased ROM and decreased stiffness ASSESSMENT: Patient is demonstrating progress as evidenced by decreased knee, hip, and back pain. He continues to need verbal cues throughout his session and is able to improve his form after prompting. Patient had increased ROM and reported he felt less stiff after the psoas release. Patient would benefit from continued skilled interventions, as stated in the plan of care, due to the following functional limitations: limbing stairs, squatting, getting in and out of the car and running. . Preferred Language: Malagasy All charges entered today are appropriate and [...] st Contact Info) Description 08/27/2024 11:00 AM SPECIMEN TRANSPORTER [facility] 1 [place] [address] Brando Luong DO [address] [place] [address] Discharge Disposition: Discharged to home or Selfcare 08/27/2024 12:00 PM SPECIMEN TRANSPORTER Appointment [facility] Diagnostic Radiology 1 [place] [address] Brando Luong DO [address] [place] [address] Discharge Disposition: Discharged to home or Selfcare documented as of this encounter Visit Diagnoses Not on filedocumented in this encounter Care Teams Manager Mail Relationship Specialty Start Date End Date Brando Luong DO [address] [place] [address] PCP - General Family Medicine 11/01/23 documented as of this encounter
--- OUTSIDE RECORDS SUMMARY | 2024-08-20 22:52 | XMS_ITS | Encounter Summary ---
Author Organization [facility] Care Team Providers Care Screw Machine Set Up Operator Name Role Phone Brando Luong DO Primary Care Provider +1- [phone] Encounter Details Date Type Department Care Team (Latest Contact Info) Description 03/04/2024 Travel Social History Tobacco Use Types Packs/Day [...] st Contact Info) Description 08/27/2024 11:00 AM LAST MODEL MAKER [facility]ment [facility] [address] [place] [address] Brando Luong DO [address] [place] [address] Discharge Disposition: Discharged to home or Selfcare 08/27/2024 12:00 PM LAST MODEL MAKER Appointment [facility] Diagnostic Radiology [address] [place] [address] Brando Luong DO [address] [place] [address] Discharge Disposition: Discharged to home or Selfcare documented as of this encounter Visit Diagnoses Not on filedocumented in this encounter Care Teams Screw Machine Set Up Operator Relationship Specialty Start Date End Date Brando Luong DO [address] [place] [address] PCP - General Family Medicine 11/01/23 documented as of this encounter
--- OUTSIDE RECORDS SUMMARY | 2024-08-20 22:52 | XMS_ITS | Encounter Summary ---
Author Organization [facility] Care Team Providers Care Scraper Operator Name Role Phone Brando Luong DO Primary Care Provider +1- [phone] Encounter Details Date Type Department Care Team (Latest Contact Info) Description 02/22/2024 Travel Social History Tobacco Use Types Packs/Day [...] st Contact Info) Description 08/27/2024 11:00 AM SSDS MK 2 ADVANCED OPERATOR [facility] 1 [place] [address] Brando Luong DO [address] [place] [address] Discharge Disposition: Discharged to home or Selfcare 08/27/2024 12:00 PM SSDS MK 2 ADVANCED OPERATOR Appointment [facility] Diagnostic Radiology 1 [place] [address] Brando Luong DO [address] [place] [address] Discharge Disposition: Discharged to home or Selfcare documented as of this encounter Visit Diagnoses Not on filedocumented in this encounter Care Teams Scraper Operator Relationship Specialty Start Date End Date Brando Luong DO [address] [place] [address] PCP - General Family Medicine 11/01/23 documented as of this encounter
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
--- OUTSIDE RECORDS SUMMARY | 2024-08-20 22:52 | XMS_ITS | Encounter Summary ---
Author Organization [facility] Care Team Providers Care Turnaround Engineer Name Role Phone Brando Luong DO Primary Care Provider +1- [phone] Encounter Details Date Type Department Care Team (Latest Contact Info) Description 11/01/2023 Travel Social History Tobacco Use Types Packs/Day [...] st Contact Info) Description 08/27/2024 11:00 AM WOOD GETTER [facility] [address] [place] [address] Brando Luong DO [address] [place] [address] Discharge Disposition: Discharged to home or Selfcare 08/27/2024 12:00 PM WOOD GETTER Appointment [facility] Diagnostic Radiology [address] [place] [address] Brando Luong DO [address] [place] [address] Discharge Disposition: Discharged to home or Selfcare documented as of this encounter Visit Diagnoses Not on filedocumented in this encounter Care Teams Turnaround Engineer Relationship Specialty Start Date End Date Brando Luong DO [address] [place] [address] PCP - General Family Medicine 11/01/23 documented as of this encounter
--- OUTSIDE RECORDS SUMMARY | 2024-08-20 22:52 | XMS_ITS | Clinical Summary ---
Author Organization [facility] [place] Address [address] [place] [address] Phone Care Team Providers Care Business Line Manager Name Role Phone Brando Luong DO Primary Care Provider +1- [phone] Allergies No known active allergies Medications dexamethasone (Decadron) 4 MG Tablet Take 1 Tablet by mouth daily. 7 Tablet 4 Active HYDROcodone-acetam inophen (NORCO) 5-325 MG TabletIndications: Lumbar back pain with radiculopathy affecting right lower extremity Take 1 Tablet by mouth every 4 hours as needed for Severe pain. 20 Tablet 4 Active Active Problems No known active problems Encounters Date Type Department Care Team Description 07/12/2024 Transcribe Orders [facility] Central Scheduling [address] [place] [phone] Brando Luong DO Pain in joint of left knee (Primary Dx) 05/31/2024 Documentation Only [facility] [address] [place] [phone] Lupe Devine, PT from Last 3 Months Social History Tobacco Use Types Packs/Day Years [...] Mass Index 34.58 01/03/2024 8:05 AM CDT Plan of Treatment Upcoming Encounters Date Type Department Care Team (Late st Contact Info) Description 08/27/2024 11:00 AM AUTO TRANSMISSION SPECIALIST [facility] [address] [place] [address] Brando Luong, DO [address] [place] [address] Discharge Disposition: Discharged to home or Selfcare 08/27/2024 12:00 PM AUTO TRANSMISSION SPECIALIST [facility] [address] [place] [address] Brando Luong, DO [address] [place] [address] Discharge Disposition: Discharged to home or Selfcare Health Maintenance Due Date Last Done Comments TdaP Immunization 1985 Hepatitis B Immunization (1 of 3 - 19+ 3-dose series) 2004 Influenza Immunization (#1) 2024 SARS-COV-2 Immunization ( - season) 2024 Respiratory Syncytial Virus (RSV) Immunization (Adult) (1 - 1-dose 75+ series) 2060 Hepatitis C Virus (HCV) Screening Completed 024 Meningococcal Immunization (ACWY) Aged Out No longer eligible based on patient's age to complete this topic Pneumococcal Immunization Combined Aged Out No longer eligible based on patient's age to complete this topic Rotavirus Immunization Aged Out No lo nger eligible based on patient's age to complete this topic Procedures Procedure Name Priority Date/Time Associated Diagnosis Comments HEPATITIS PANEL ACUTE (AHP) Routine 11/01/2023 5:04 PM CDT Screen for STD (sexually transmitted disease) from Last 3 Months or Most Recently Relevant to Health Maintenance Results * HEPATITIS PANEL ACUTE (AHP) (11/01/2023 5:04 PM CDT) HEPATITIS A IGM ANTIBODY NON DETECTED NON DETECTED [facility] ARCH [id number] 11/02/2023 10:41 PM CDT [facility] Comment: IGM Antibodies to HAV not detected. ??Does not exclude early acute or recovered HAV infection. HEP B CORE AB (IGM) NON DETECTED NON DETECTED [facility] ARCH [id number] B 11/02/2023 10:41 PM CDT [facility] Comment:IGM anti-HBC not det ected. Does not exclude the possibility of exposure to or infection with HBV. HEPATITIS B SURFACE ANTIGEN NON DETECTED NON DETECTED [facility] ARCH [id number] 11/02/2023 10:41 PM CDT [facility] Comment:A nonreactive test r esult does not exclude the possibility of exposure to or infection with Hepatitis B virus. A nonreactive test result in individuals with prior exposure to hepatitis B may be due to antigen levels below the detection limit of this assay or lack of antigen reactivity to the antibodies in this assay. hepatitis C antibody 0.09 <1 S/CO [facility] ARCH [id number] 11/02/2023 10:41 PM CDT [facility] Comment: Signal/Cutoff ratio ??< 0.79 is Nondetected Signal/Cutoff ratio 0.80-0.99 is Grayzone Signal/Cutoff ratio > 0.99 is Detected Supplemental assays are recommended if signal/cutoff ratio is >/=1.00. ??Signal/cutoff ratio result >/= 5.00 is 97% predictive of positivity for recombinant immunoblot assay (RIBA) and will be reported to the [place] Department of Public Health as required. Blood Venipuncture / Unknown 11/01/2023 5:04 PM CDT 11/01/2023 5:05 PM CDT us Lizzeth Flores ATTENDING PSYCHIATRIST, DIRECTOR OF CODING HEMATOLOGY ORDERABL ES Final Result [facility] [address] [place] [address], [place] from Last 3 Months or Most Recently Relevant to Health Maintenance Insurance MEDICAID [place] Care Teams Business Line Manager Relationship Specialty Start Date End Date Brando Luong DO [address] [place] [address] PCP - General Family Medicine 11/01/23
--- OUTSIDE RECORDS SUMMARY | 2024-08-20 22:52 | XMS_ITS | Encounter Summary ---
Author Organization [facility] Address [address] [place] [address] Phone Care Team Providers Care Typewriter Aligner Name Role Phone Brando Luong DO Primary Care Provider +1- [phone] Reason for Referral * Radiology Services (Routine) - Authorized Specialty Diagnoses / Procedures Referred By Contac t Referred To Contact Radiology Diagnoses Lumbar radiculopathy Procedures XR LUMBAR SPINE COMPLETE WITH BENDING VIEWS Brando Luong DO [address] [place] [address] Phone: tel: fax: Referral ID Status Reason Start Date Expiration Date V isits Requested Visits Authorized [id number] Authorized 01/05/2024 1 1 Encounter Details Date Type Department Care Team (Late st Contact Info) Description 01/05/2024 Transcribe Orders [facility] Central Scheduling 1 [place] [address] Brando Luong DO [address] [place], [place] [id number] Lumbar radiculopathy (Primary Dx) Social History Tobacco Use Types [...] st Contact Info) Description 08/27/2024 11:00 AM FLUID DYNAMICIST [facility] [address] [place] [address] Brando Luong DO [address] [place] [address] Discharge Disposition: Discharged to home or Selfcare 08/27/2024 12:00 PM FLUID DYNAMICIST [facility] [address] [place] [address] Brando Luong DO [address] [place] [address] Discharge Disposition: Discharged to home or Selfcare Scheduled Orders Name Type Priority Associated Diagnoses Orde r Schedule XR LUMBAR SPINE COMPLETE WITH BENDING VIEWS Imaging Routine Lumbar radiculopathy Expected: 01/05/2024, Expires: 01/04/2025 documented as of this encounter Visit Diagnoses Diagnosis Lumbar radiculopathy- Primary Thoracic or lumbosacral neuritis or radiculitis, unspecified documented in this encounter Care Teams Typewriter Aligner Relationship Specialty Start Date End Date Brando Luong DO [address] [place] [address] PCP - General Family Medicine 11/01/23 documented as of this encounter
--- OUTSIDE RECORDS SUMMARY | 2024-08-20 22:53 | XMS_ITS | Encounter Summary ---
Author Organization [facility] Healthcare Address [address] [place] [address] Care Team Providers Care Carpet Cleaning Technician Name Role Phone King Mckenzie MD Primary Care Provider Encounter Details Date Type Department Care Team (Late st Contact Info) Description 04/20/2013 1:44 PM CDT - 04/20/2013 11:59 PM CDT Hospital Encounter [facility] King Mckenzie MD [address] [place] [address] Screening examination for sexually transmitted disease Social History Tobacco Use Types Packs/Day Years Used Date Smoking Tobacco: Never Assessed Alcohol Use Standard Drinks/Week Comments No 0 (1 standard drink = 0.6 oz pur e alcohol) Sex and Gender Information Value Date Recorded Sex Assigned at Not on file 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 Gender Identity Not on file Sexual Orientation Not on file documented as of this encounter Plan of Treatment Not on file documented as of this encounter Procedures Procedure Name Priority Date/Time Associated Diagnosis Comments URINE GONORRHEA RNA Routine 04/20/2013 1 :51 PM CDT URINE CHLAMYDIA RNA Routine 04/20/2013 1 :51 PM CDT SERUM RAPID PLASMA REAGIN (RPR) Routine 04/20/2013 1:51 PM CDT SERUM HUMAN IMMUNODEFICIENCY VIRUS Routine 04/20/2013 1:51 PM CDT SERUM HERPES SIMPLEX VIRUS 1, 2 AB, IGG Routine 04/20/2013 8:51 AM CDT DISCHARGE LABORATORY CUMULATIVE REPORT 04/20/2013 documented in this encounter Results * Urine Gonorrhea RNA (04/20/2013 1:51 PM CDT) Gonorrheae (GC) RNA, ur Negative Negative HISTORICAL RESULTS Comment: This test has been developed to maximize the sensitivity of detection of infection while minimizing false positives, with the combined goals of enabling treatment of infection and interrupting the spread of infection, and is intended for medical purposes. Any result should be interpreted together with the clinical presentation and risk assessment, particulaqly the prevalence of infection in the patient's demographic group. ??Significant discrepancies should be evaluated by additional measures. * Note - Amplification testing on urine specimens was developed and its performance characteristics were determined by [facility]. This testing has not been cleared or approved by the Food & Drug Administration. Urine 04/20/2013 1:51 PM CDT King Mckenzie MD LAB BLOOD ORDERABLES Fi nal Result Performing Organization Address [facility] de Phone Number HISTORICAL RESULTS * Urine Chlamydia RNA (04/20/2013 1:51 PM CDT) Chlamydia RNA, ur Negative Negative HI STORICAL RESULTS Comment: This test has been devekoped to maximize the sensitivity of detection of infection while minimizing false positives, with the combined goals of enabling treatment of infection and interrupting the spread of infection, and is intended for medical purposes. Any result should be interpreted together with the clinical presentation and risk assessment, particularly the prevalence of infection in the patient's demographic group. ??Significant discrepancies should be evaluated by additional measures. * Note - Amplification testing on urine specimens was developed and its performance characteristics were determined by [facility]. This testing has not been cleared or approved by the Food & Drug Administration. Urine 04/20/2013 1:51 PM CDT King Mckenzie MD LAB BLOOD ORDERABLES Fi nal Result Performing Organization Address City/[facility]/ZIP Co de Phone Number HISTORICAL RESULTS * Serum rapid plasma reagin (RPR) (04/20/2013 1:51 PM CDT) RPR Non Reactive NonReactive HISTO RICAL RESULTS Serum 04/20/2013 1:51 PM CDT King Mckenzie MD LAB BLOOD ORDERABLES Fi nal Result Performing Organization Address City/State/[facility] Co de Phone Number HISTORICAL RESULTS * Serum Human Immunodeficiency virus [HIV] 1and 2 ag/ab (04/20/2013 1:51 PM CDT) HIV 1 and 2, ag/ab Negative Negative HISTORICAL RESULTS Serum 04/20/2013 1:51 PM CDT King Mckenzie MD LAB BLOOD ORDERABLES Fi nal Result Performing Organization Address City/[facility] Co de Phone Number HISTORICAL RESULTS * Serum Herpes simplex virus 1, 2 ab, IgG (04/20/2013 8:51 AM CDT) HSV 1 ab, IgG Positive Negative HISTOR ICAL RESULTS HSV 2 ab, IgG Positive Negative HISTOR ICAL RESULTS HSV ab, IgM Negative Negative HISTORIC AL RESULTS Comment: The performance of this assay has not been established for use in neonates, infants or on cord blood. The value Negative was changed by IF on 04/22/2013 19:30 from: no value Serum 04/20/2013 8:51 AM CDT Narrative HISTORICAL RESULTS - 04/22/2013 2:30 PM CDT Test performed at [facility] Dept of Lab Medicine and Pathology, [address] [place] [address], [place], [address]. King Mckenzie MD LAB BLOOD ORDERABLES Fi nal Result HISTORICAL RESULTS * DISCHARGE LABORATORY CUMULATIVE REPORT (04/20/2013) Narrative 04/20/2013 Ordered by an unspecified provider. Historical Provider LAB BLOOD ORDERABLES Zoey l Result documented in this encounter Visit Diagnoses Diagnosis Screening examination for sexually transmitted disease documented in this encounter Additional Health Concerns Infection Onset Date Last Indicated Resolved Time MRSA Comment:L. hip 02/07/13 02/10/2013 02/10/2013 04/10/2021 5:00 A M CDT documented as of this encounter Care Teams Carpet Cleaning Technician Relationship Specialty Start Date End Date King Mckenzie MD [address] [id number], [place] [address] PCP - General 04/20/13 09/01/17 documented as of this encounter
--- OUTSIDE RECORDS SUMMARY | 2024-08-20 22:53 | XMS_ITS | Encounter Summary ---
Author Organization [facility] Healthcare Address [address] [place] [address] Care Team Providers Care Arc Cutter Name Role Phone King Mckenzie MD Primary Care Provider Encounter Details Date Type Department Care Team (Latest Contact Info) Description 04/22/2013 2:03 PM CDT - 04/22/2013 11:59 PM CDT Hospital Encounter [place] [address] [address] Pain in joint, lower leg; Effusion of lower leg joint; Accident; Unspecified place of occurrence; Activities involving basketball; Other postprocedural states Social History Tobacco Use Types Packs/Day Years Used Date Smoking Tobacco: Never Assessed Alcohol Use Standard Drinks/Week Comments No 0 (1 standard drink = 0.6 oz pur e alcohol) Sex and Gender Information Value Date Recorded Sex Assigned at Not on file 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 DIAGNOSIS: ??JOINT PAIN-SITE NOS CLINICAL HISTORY: ?? JOINT PAIN ?? RESULT: \ RIGHT KNEE MRI WITHOUT CONTRAST: HISTORY: ??Pain, injury to the right knee while playing basketball. Multiplanar, multisequence images of the right knee were obtained. Small right knee joint effusion is present. ACL graft is intact. There is no evidence of impingement. Posterior cruciate ligament is unremarkable. Collateral ligaments are unremarkable. The medial meniscal body is diminutive. Lateral meniscus is normal. IMPRESSION: ?\ 1. JOINT EFFUSION. ACL GRAFT IS INTACT. 2. MEDIAL MENISCUS IS DIMINUTIVE IN SIZE. CORRELATE WITH ANY PRIOR HISTORY OF INTERVENTION INVOLVING THE MENISCUS. NO EVIDENCE CONCLUSIVE FOR ACUTE TEAR, HOWEVER. 3. MEDIAL COLLATERAL LIGAMENT AND SOFT TISSUES AT THE MEDIAL ASPECT OF THE KNEE ARE UNREMARKABLE. NO MARROW CONTUSION INJURY. ? DUPLEX TRIMMER: ??[id number] TRANSCRIBE DATE/TIME: ??Apr 22 2013 ??6:12P RADIOLOGIST: ??RERE DENISE M.D. ??READ ON: ??Apr 22 2013 ??4:54P ORDERING DR: ALEKSANDR JOHNSON M.D. THIS DOCUMENT HAS BEEN ELECTRONICALLY SIGNED BY: ??RERE DENISE M.D. ??ON: ??Apr 22 2013 ??7:38P Requesting Fax: ??[phone] Procedure Note Provider, MD Анна - 12/21/2016 DATE OF EXAM: Apr 22 2013 3:14PM Acc#: [id number] WMR [id number] - MR Knee WO R DIAGNOSIS: JOINT PAIN-SITE NOS CLINICAL HISTORY: JOINT PAIN RESULT: \ RIGHT KNEE MRI WITHOUT CONTRAST: HISTORY: Pain, injury to the right knee while playing basketball. Multiplanar, multisequence images of the right knee were obtained. Small right knee joint effusion is present. ACL graft is intact. There is no evidence of impingement. Posterior cruciate ligament is unremarkable. Collateral ligaments are unremarkable. The medial meniscal body is diminutive. Lateral meniscus is normal. IMPRESSION: \ 1. JOINT EFFUSION. ACL GRAFT IS INTACT. 2. MEDIAL MENISCUS IS DIMINUTIVE IN SIZE. CORRELATE WITH ANY PRIOR HISTORY OF INTERVENTION INVOLVING THE MENISCUS. NO EVIDENCE CONCLUSIVE FOR ACUTE TEAR, HOWEVER. 3. MEDIAL COLLATERAL LIGAMENT AND SOFT TISSUES AT THE MEDIAL ASPECT OF THE KNEE ARE UNREMARKABLE. NO MARROW CONTUSION INJURY. DUPLEX TRIMMER: [id number] TRANSCRIBE DATE/TIME: Apr 22 2013 6:12P RADIOLOGIST: RERE DENISE M.D. READ ON: Apr 22 2013 4:54P ORDERING DR: ALEKSANDR JOHNSON M.D. THIS DOCUMENT HAS BEEN ELECTRONICALLY SIGNED BY: RERE DENISE M.D. ON: Apr 22 2013 7:38P Requesting us Historical Provider MD [facility] MRI PROCEDURES Final Result documented in this encounter Visit Diagnoses Diagnosis Pain in joint, lower leg Effusion of lower leg joint Accident Unspecified accident Unspecified place of occurrence Activities involving basketball Other postprocedural states documented in this encounter Additional Health Concerns Infection Onset Date Last Indicated Resolved Time MRSA Comment:L. hip 02/07/13 02/10/2013 02/10/2013 04/10/2021 5:00 A M CDT documented as of this encounter Care Teams Arc Cutter Relationship Specialty Start Date End Date King Mckenzie MD [address] [facility] [address] [place] [address] PCP - General 04/20/13 09/01/17 documented as of this encounter
--- OUTSIDE RECORDS SUMMARY | 2024-08-20 22:53 | XMS_ITS | Encounter Summary ---
Author Organization [facility] Care Team Providers Care Fur Mixer Name Role Phone Unavailable Primary Care Provider Unavailabl e Encounter Details Date Type Department Care Team (Latest Contact Info) Description 12/25/2008 2:33 PM CDT - 12/25/2008 4:00 PM CDT Hospital Encounter [facility] Aleksandr Gonsales MD [address] [place] [address] Degeneration of lumbar or lumbosacral intervertebral disc; Pain in joint, shoulder region Social History Tobacco Use Types Packs/Day Years Used Date Smoking Tobacco: Never Assessed Sex and Gender Information Value Date Recorded Sex Assigned at Not on file 

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
--- OUTSIDE RECORDS SUMMARY | 2024-08-20 22:53 | XMS_ITS | Encounter Summary ---
Author Organization [facility] Facility Care Team Providers Care Habilitation Assistant Name Role Phone Unavailable Primary Care Provider Unavailabl e Encounter Details Date Type Department Care Team (Late st Contact Info) Description 02/19/2009 - 02/19/2009 11:59 PM CDT Hospital Encounter [facility] [place], [place] [address] [place] [address] Follow-up examination, following other surgery Social History Tobacco Use Types Packs/Day Years Used Date Smoking Tobacco: Never Assessed Sex and Gender Information Value Date Recorded Sex Assigned at Not on file Legal Sex Male 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
--- OUTSIDE RECORDS SUMMARY | 2024-08-20 22:53 | XMS_ITS | Encounter Summary ---
Author Organization [facility] Facility Care Team Providers Care Councilman Name Role Phone Unavailable Primary Care Provider Unavailabl e Encounter Details Date Type Department Care Team (Late st Contact Info) Description 07/30/2009 - 07/30/2009 11:59 PM SUPERVISOR CUSTOMER SERVICES [facility] [place] [address] [place] [address] Other orthopedic aftercare; Effusion of lower leg joint Social History Tobacco Use Types Packs/Day Years Used Date Smoking Tobacco: Never Assessed Sex and Gender Information Value Date Recorded Sex Assigned at Not on file Legal Sex Male 6:06 PM SUPERVISOR CUSTOMER SERVICES Gender Identity Not on file Sexual Orientation Not on file documented as of this encounter Plan of Treatment Not on file documented as of this encounter Visit Diagnoses Diagnosis Other orthopedic aftercare Effusion of lower leg joint documented in this encounter
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
--- OUTSIDE RECORDS SUMMARY | 2024-08-20 22:53 | XMS_ITS | Encounter Summary ---
Author Organization [facility] Healthcare Address [address] [place] [address] Care Team Providers Care Trimmer Machine Operator Name Role Phone Unavailable Primary Care Provider Unavailabl e Encounter Details Date Type Department Care Team (Late st Contact Info) Description 02/07/2013 8:06 PM CDT - 02/07/2013 9:12 PM CDT Hospital Encounter [facility] Nitin Crocker MD [address] [place] [place] [address] Abscess or cellulitis of gluteal region Social History Tobacco Use Types Packs/Day Years Used Date Smoking Tobacco: Never Assessed Sex and Gender Information Value Date Recorded Sex Assigned at Not on file Legal Sex Male 6:06 PM INVASIVE CARDIOLOGIST Gender Identity Not on file Sexual Orientation Not on file documented as of this encounter Plan of Treatment Not on file documented as of this encounter Procedures Procedure Name Priority Date/Time Associated Diagnosis Comments WOUND MICROBIOLOGY Routine 02/07/2013 12 :00 AM CDT DISCHARGE LABORATORY CUMULATIVE REPORT 02/07/2013 documented in this encounter Results * DISCHARGE LABORATORY CUMULATIVE REPORT (02/07/2013) Narrative 02/07/2013 Ordered by an unspecified provider. Historical Provider LAB BLOOD ORDERABLES Zoey l Result * Wound Microbiology (02/07/2013 12:00 AM CDT) 02/07/2013 Narrative HISTORICAL RESULTS - 02/10/2013 9:50 AM CDT [facility] ?Patient Name: ?HALI, RAHAT B ?Med. Rec#: ?? [id number] ?Pt. Acct.#: ??[id number] ?Birthdate: ?? 1985 ?Age / Sex: ?? 27Y / M ?Location: ?DISCH (Emergenc ?Admit Date: ??02/07/2013 ?Discharge Date: ? 02/07/2013 ?Doctor: ?Nitin Irving ?Patient Type: ?[facility] Emergency Room Culture, Wound ? Collected: 02/07/2013 20:55 Specimen: Abscess ?? Specimen Source: Hip Left Status: Final ??Last Update: 02/10/2013 09:06 Gram Stain ?? Few neutrophils seen ?? Moderate Gram positive cocci seen Organism ?? Heavy growth of ?? Methicillin Resistant Staphylococcus aureus (MRSA) ?$$'s REPRESENT ?- ?IN-PATIENT COST ? - ?- ?Amp/Sulbactam ? 8/4 ?R ?? $$ ?Cefazolin ? 16 ? R ?$ ?Clindamycin ? <=0.5 ?S ?? $$$ ?Erythromycin ?>4 ? R ?? $$$ ?Gentamicin ?<=2 ?S ? $ ?Levofloxacin ?>4 ? R ?? $$ ?Oxacillin ? >2 ? R ?? $$$ ?Rifampin ?<=0.5 ?S ? $ ?Tetracycline ?<=0.5 ?S ? $ ?Trimeth/Sulfa ?S ?$ ?<=0.5/9.5 ?Vancomycin ?1 ?S ?? $$ us Historical Provider MD LAB MICROBIOLOGY - GENERA L ORDERABLES Final Result HISTORICAL RESULTS documented in this encounter Visit Diagnoses Diagnosis Abscess or cellulitis of gluteal region Cellulitis and abscess of buttock documented in this encounter
--- OUTSIDE RECORDS SUMMARY | 2024-08-20 22:53 | XMS_ITS | Encounter Summary ---
Author Organization [facility] Healthcare Address [address] [place] [address] Care Team Providers Care Package Car Driver Name Role Phone King Mckenzie MD Primary Care Provider Encounter Details Date Type Department Care Team (Late st Contact Info) Description 02/22/2014 4:22 PM CDT - 02/22/2014 11:59 PM CDT Hospital Encounter [facility] King Mckenzie MD [address] [place] [id number] Screening examination for sexually transmitted disease Social History Tobacco Use Types Packs/Day Years Used Date Smoking Tobacco: Never Assessed Alcohol Use Standard Drinks/Week Comments No 0 (1 standard drink = 0.6 oz pur e alcohol) Sex and Gender Information Value Date Recorded Sex Assigned at Not on file 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 hip 02/07/13 02/10/2013 02/10/2013 04/10/2021 5:00 A M CDT documented as of this encounter Care Teams Package Car Driver Relationship Specialty Start Date End Date King Mckenzie MD [address] [place] [id number] PCP - General 04/20/13 09/01/17 documented as of this encounter
--- OUTSIDE RECORDS SUMMARY | 2024-08-20 22:53 | XMS_ITS | Encounter Summary ---
Author Organization [facility] Healthcare Address [address] [place] [address] Care Team Providers Care Process Manager Name Role Phone Darryl Curtis MD Primary Care Provide r Encounter Details Date Type Department Care Team (Late st Contact Info) Description 09/02/2017 9:15 AM DROP PRESS HAND Lab [facility] [id number] [place] [address] [address] [place] [address] Darryl Curtis MD [address] [place] [address] [address] [place] [address] Annual physical exam Discharge Disposition: Discharge to home or self care Social History Tobacco Use Types Packs/Day Years Used Date Smoking Tobacco: Never Smokeless Tobacco: Never Alcohol Use Standard Drinks/Week Comments No 0 (1 standard drink = 0.6 oz pur e alcohol) Sex and Gender Information Value Date Recorded Sex Assigned at Not on file Legal Sex Male 6:06 PM DROP PRESS HAND Gender Identity Not on file Sexual Orientation Not on file documented as of this encounter Discharge Disposition Disposition Code Departure Means Destination Discharge to home or self care documented in this encounter Plan of Treatment Not on file documented as of this encounter Procedures Procedure Name Priority Date/Time Associated Diagnosis Comments GLUCOSE, FASTING Routine 09/02/2017 9:03 AM DROP PRESS HAND Annual physical exam LIPID PANEL Routine 09/02/2017 9:03 AM DROP PRESS HAND Annual physical exam DISCHARGE LABORATORY CUMULATIVE REPORT 09/02/2017 12:00 AM DROP PRESS HAND documented in this encounter Results * (ABNORMAL) Lipid panel (09/02/2017 9:03 AM DROP PRESS HAND) Cholesterol 223(H) 100 - 200 mg/dL ALEX Comment: Interpretive Data Desirable: ?<200 mg/dL Borderline high: ??200-239 mg/dL High: ? >240 mg/dL Current interpretive data was last revised on 2016. Triglycerides 85 10 - 150 mg/dL ALEX Comment: Interpretive Data Desirable: ? < 150 ? mg/dL Borderline High: ? 150 - 199 mg/dL High: ?200 - 499 mg/dL Very High: ? > or = 499 ??mg/dL Current interpretive data was last revised on 2016. HDL 40 40 - 59 mg/dL ALEX Comment: Interpretive Data Less than 40 mg/dL - Low; A major risk factor for heart disease. Greater than or equal to 60 mg/dL - High; ??Considered protective of heart disease. Current interpretive data was last revised on 2016. LDL, calculated 166(H) 60 - 129 mg/dL ALEX Comment: Interpretive Data Optimal: ? < 100 mg/dL Near Optimal: ?100 - 129 mg/dL Borderline High: ?? 130 - 159 mg/dL High: ?> 160 mg/dL Current interpretive data was last revised on 2016. Non-HDL Cholesterol 183 mg/dL ALEX Comment: Interpretive Data When triglycerides are >200 mg/dL, non-HDL C is a secondary target of therapy, with a goal 30 mg/dL higher than the identified LDL-C goal. Current interpretive data was last revised 2016. Blood specimen (specimen) 09/02/2017 9:03 AM DROP PRESS HAND 09/02/2017 10:08 AM DROP PRESS HAND Narrative [facility] - 09/02/2017 10:33 AM [facility] us Darryl Curtis MD LAB BLOOD ORDERABLES Final Result [facility] [id number] [place] [address] * Glucose, fasting (09/02/2017 9:03 AM DROP PRESS HAND) Glucose, fasting 90 70 - 99 mg/dL ALEX Blood specimen (specimen) 09/02/2017 9:03 AM DROP PRESS HAND 09/02/2017 10:08 AM DROP PRESS HAND Narrative [facility] - 09/02/2017 10:33 AM DROP PRESS HAND Darryl Curtis MD LAB BLOOD ORDERABLES Final Result Performing Organization Address [facility] Co de Phone Number [facility]LEX [facility] [id number] [place] [address] * DISCHARGE LABORATORY CUMULATIVE REPORT (09/02/2017 12:00 AM DROP PRESS HAND) Narrative 09/02/2017 12:00 AM DROP PRESS HAND Ordered by an unspecified provider. Historical Provider LAB BLOOD ORDERABLES Zoey l Result documented in this encounter Visit Diagnoses Diagnosis Annual physical exam Routine general medical examination at a health care facility documented in this encounter Additional Health Concerns Infection Onset Date Last Indicated Resolved Time MRSA Comment:L. hip 02/07/13 02/10/2013 02/10/2013 04/10/2021 5:00 A M CDT documented as of this encounter Care Teams Process Manager Relationship Specialty [place] [address] [facility] [address] [place] [address] PCP - General Family Medicine 09/02/17 documented as of this encounter
--- OUTSIDE RECORDS SUMMARY | 2024-08-20 22:53 | XMS_ITS | Encounter Summary ---
Author Organization [facility] Facility Care Team Providers Care Lead Simulation Modeling Engineer Name Role Phone Unavailable Primary Care Provider Unavailabl e Encounter Details Date Type Department Care Team (Late st Contact Info) Description 06/03/2008 5:25 PM CDT - 06/03/2008 7:38 PM CDT Hospital Encounter [facility] Tyrone Marley [address] [place], [place] [address] Pain in joint, lower leg; Accident; Place of occurrence, place for recreation and sport Social History Tobacco Use Types Packs/Day Years Used Date Smoking Tobacco: Never Assessed Sex and Gender Information Value Date Recorded Sex Assigned at Not on file 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
--- OUTSIDE RECORDS SUMMARY | 2024-08-20 22:53 | XMS_ITS | Encounter Summary ---
Author Organization [facility] Healthcare Address [address] [place] [address] Care Team Providers Care Brim Pouncer Machine Operator Name Role Phone King Mckenzie MD Primary Care Provider Encounter Details Date Type Department Care Team (Late st Contact Info) Description 09/09/2013 3:27 PM GAS COMPRESSOR OPERATOR - 09/09/2013 11:59 PM GAS COMPRESSOR OPERATOR Hospital Encounter [facility] Anju Quintana MD [address] [id number] Screening examination for sexually transmitted disease Social History Tobacco Use Types Packs/Day Years Used Date Smoking Tobacco: Never Assessed Alcohol Use Standard Drinks/Week Comments No 0 (1 standard drink = 0.6 oz pur e alcohol) Sex and Gender Information Value Date Recorded Sex Assigned at Not on file Legal Sex Male 6:06 PM GAS COMPRESSOR OPERATOR Gender Identity Not on file Sexual Orientation Not on file documented as of this encounter Plan of Treatment Not on file documented as of this encounter Procedures Procedure Name Priority Date/Time Associated Diagnosis Comments SERUM RAPID PLASMA REAGIN (RPR) Routine 09/09/2013 3:37 PM GAS COMPRESSOR OPERATOR SERUM HUMAN IMMUNODEFICIENCY VIRUS Routine 09/09/2013 3:37 PM GAS COMPRESSOR OPERATOR SERUM HEPATITIS B SURFACE AG Routine 09/09/2013 3:37 PM GAS COMPRESSOR OPERATOR URINE GONORRHEA RNA Routine 09/09/2013 9 :37 AM GAS COMPRESSOR OPERATOR URINE CHLAMYDIA RNA Routine 09/09/2013 9 :37 AM GAS COMPRESSOR OPERATOR DISCHARGE LABORATORY CUMULATIVE REPORT 09/09/2013 documented in this encounter Results * Serum rapid plasma reagin (RPR) (09/09/2013 3:37 PM GAS COMPRESSOR OPERATOR) RPR Non Reactive NonReactive HISTO RICAL RESULTS Serum 09/09/2013 3:37 PM GAS COMPRESSOR OPERATOR Result [facility] Anju Hdz MD LAB BLOOD ORDERABLES Final Result Performing Organization Address [facility] de Phone Number HISTORICAL RESULTS * Serum Hepatitis B surface ag (09/09/2013 3:37 PM GAS COMPRESSOR OPERATOR) Pathologist [facility] [place] HBV surface ag Negative Negative HISTO RICAL RESULTS Serum 09/09/2013 3:37 PM GAS COMPRESSOR OPERATOR Result [facility] Anju Hdz MD LAB BLOOD ORDERABLES Final Result Performing Organization Address [facility] de Phone Number HISTORICAL RESULTS * Serum Human Immunodeficiency virus [HIV] 1and 2 ag/ab (09/09/2013 3:37 PM GAS COMPRESSOR OPERATOR) HIV 1 and 2, ag/ab Negative Negative HISTORICAL RESULTS Serum 09/09/2013 3:37 PM GAS COMPRESSOR OPERATOR Result [facility] Anju Hdz MD LAB BLOOD ORDERABLES Final Result Performing Organization Address [facility] Phone Number HISTORICAL RESULTS * Urine Gonorrhea RNA (09/09/2013 9:37 AM GAS COMPRESSOR OPERATOR) Gonorrheae (GC) RNA, ur Negative Negative HISTORICAL [...] and its performance characteristics were determined by [facility]. This testing has not been cleared or approved by the Food & Drug Administration. Urine 09/09/2013 9:37 AM GAS COMPRESSOR OPERATOR Narrative HISTORICAL RESULTS - 09/12/2013 7:24 AM GAS COMPRESSOR OPERATOR PER ANA DOCTOR WANTS URINE. [facility] Anju Hdz MD LAB BLOOD ORDERABLES Final Result Performing Organization Address [facility] de Phone Number HISTORICAL RESULTS * Urine Chlamydia RNA (09/09/2013 9:37 AM GAS COMPRESSOR OPERATOR) Chlamydia RNA, ur Negative Negative HI STORICAL RESULTS Comment: This test has been developed [...] and its performance characteristics were determined by [facility]. This testing has not been cleared or approved by the Food & Drug Administration. Urine 09/09/2013 9:37 AM GAS COMPRESSOR OPERATOR Narrative HISTORICAL RESULTS - 09/12/2013 7:24 AM GAS COMPRESSOR OPERATOR PER ANA DOCTOR WANTS URINE. [facility] Result [facility] Anju Hdz MD LAB BLOOD ORDERABLES Final Result Performing Organization Address [facility] de Phone Number HISTORICAL RESULTS * DISCHARGE LABORATORY CUMULATIVE REPORT (09/09/2013) Narrative 09/09/2013 Ordered by an unspecified provider. Historical Provider LAB BLOOD ORDERABLES Zoey l Result documented in this encounter Visit Diagnoses Diagnosis Screening examination for sexually transmitted disease documented in this encounter Additional Health Concerns Infection Onset Date Last Indicated Resolved Time MRSA Comment:L. hip 02/07/13 02/10/2013 02/10/2013 04/10/2021 5:00 A M CDT documented as of this encounter Care Teams Brim Pouncer Machine Operator Relationship Specialty Start Date End Date King Mckenzie MD [address] [place] [address] PCP - General 04/20/13 09/01/17 documented as of this encounter
--- OUTSIDE RECORDS SUMMARY | 2024-08-20 22:53 | XMS_ITS | Encounter Summary ---
Author Organization [facility] Medical Group Address [address] [place] [address] Care Team Providers Care Edger Hand Name Role Phone Darryl Curtis MD Primary Care Provide r Reason for Visit * Reason Comments Insomnia Encounter Details Date Type Department Care Team (Late st Contact Info) Description 04/05/2018 4:00 PM CDT Office Visit Family Care at [facility] 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 Gender Identity Not on file Sexual Orientation Not on file documented as of this encounter Last Filed Vital Signs Vital Sign Reading Time Taken Comments Blood Pressure 146/89 04/05/2018 4:12 PM CDT Pulse 93 04/05/2018 4:12 PM CDT Temperature - - Respiratory Rate - - Oxygen Saturation - - Inhaled Oxygen Concentration - - Weight 106.6 kg (235 lb) 04/05/2018 4:12 PM CDT Height 182.9 cm (6') 04/05/2018 4:12 PM CDT Body Mass Index 31.87 04/05/2018 4:12 PM CDT documented in this encounter Patient Instructions * Patient Instructions* Darryl Curtis MD - 04/05/2018 4:39 PM CDT Patient Education Snoring WHAT YOU NEED TO KNOW: What makes someone more likely to snore? Snoring is more common in men, older adults, and people who are overweight. You are more likely to snore after you drink alcohol or take medicines that make you drowsy or relaxed. Women are more likely to snore in the later stages of . You are more likely to snore if you have a cold, stuffy nose, or throat problems, such as tonsillitis. A deviatedseptum can also cause snoring. The septum is in the middle of the nose and divides your nostrils. Aseptum that is deviated is not in the correct place. How is the cause of snoring diagnosed? Your healthcare provider will examine you and ask about yoursleep pattern and snoring. You may need a sleep study. This is an overnight test that checks for problems with breathing while you sleep. How can I manage my snoring? ?? Change your sleep position. Try a different sleep position, such as lying on your side. This mayhelp decrease snoring. ?? Use a dental device. You may need to use a dental device while you sleep. It is similar to a retainer or mouth guard. The device helps keep your airway open while you sleep. Ask your healthcare provider or dentist about a dental device. ?? Talk to your healthcare provider about alcohol and medicines that make you drowsy. Alcohol and certain medicines can increase your snoring. ?? Lose weight. This will help decrease or stop your snoring. Ask your healthcare provider if you need to lose weight and how much you should lose. Ask for help with a weight loss program. ?? Get plenty of exercise. Talk to your healthcare provider about the best exercise plan for you. Exercise can help you lose weight, decrease your blood pressure, and improve your health. How are breathing problems related to snoring treated? You may need the following if snoring causesyou to stop breathing: ?? A CPAP is a machine that keeps your airway open while you sleep. You wear a mask over your nose or over your nose and mouth. The mask is held in place by elastic straps that go around your head. The mask is hooked to the CPAP machine. The machine blows a gentle stream of air into the mask. This helps keep your airway open so you can breathe more regularly. Extra oxygen can also be given through the machine. ?? Nose or throat surgery may be needed if you have trouble breathing due to your snoring. Ask yourhealthcare provider for more information about surgery. When should I contact my healthcare provider? ?? You wake up often during the night. ?? You feel more tired than usual. ?? You have frequent headaches or feel depressed. ?? You have questions or concerns about your condition or care. When should I seek immediate care or call 911? ?? You have chest pain. ?? You have new shortness of breath. CARE AGREEMENT: You have the right to help plan your care. Learn about your health condition and how it may be treated. Discuss treatment options with your caregivers to decide what care you want to receive. You always have the right to refuse treatment. The above information is an educational psychology professor only. It is not intended as medical advice for individual conditions or treatments. Talk to your doctor, nurse or pharmacist before following any medical regimen to see if it is safe and effective for you. ?? 2016 [employer]. Information is for End User's use only and may not be sold, redistributed or otherwise used for commercial purposes. All illustrations and images included in CareNotes?? are the copyrighted property of [employer] or [employer]. Patient Education Sleep Apnea WHAT YOU NEED TO KNOW: What is sleep apnea? Sleep apnea is also called obstructive sleep apnea. It is a condition that causes you to stop breathing for 10 seconds or more while you are sleeping. During normal sleep, your throat is kept open by muscles that let air pass through easily. Sleep apnea causes the muscles and tissues around your throat to relax and block air from passing through. Sleep apnea may happen many times while you are asleep. What increases my risk for sleep apnea? ?? Drinking alcohol or taking medicine to relax you before you sleep ?? Obesity or a neck measuring 16 inches (41 centimeters) or more ?? Smoking cigarettes ?? Being a man or a menopausal woman ?? A family history of sleep apnea ?? Certain medical conditions, such as high blood pressure, diabetes, or stroke ?? A deviated septum, a large tongue or tonsils, an overbite, or a small chin What are the signs and symptoms of sleep apnea? ?? No signs of breathing for 10 seconds or more while you sleep ?? Snoring loudly, snorting, gasping or choking while you sleep, and waking up suddenly because of these ?? A hard time thinking, remembering things, or focusing on your tasks the following day ?? Headache or nausea ?? Bedwetting or waking up often during the night to urinate ?? Feeling sleepy, slow, and tired during the day How is sleep apnea diagnosed? ?? Your healthcare provider will ask about your signs and symptoms, when they began, and how bad they are. He may ask about medical conditions you have and what medicines you take. Tell your healthcare provider if you smoke and whether anyone in your family has sleep apnea. Your healthcare providermay ask the person who sleeps beside you about your signs. ?? You may need to wear a device that monitors the oxygen level in your blood while you sleep. You may need to have a sleep study (polysomnography) if you have daytime sleepiness. A sleep study helpsshow your brain, heart, and respiratory system are working during sleep. Sleep studies may monitor the stages of sleep, oxygen levels, body position, eye movement, and snoring. How is sleep apnea treated? ?? A continuous positive airway pressure (CPAP) machine is used to keep your airway open during sleep. A mask is placed over your nose and mouth, or just your nose. The mask is hooked to the CPAP machine. The CPAP blows a gentle stream of air into the mask when you breathe. This helps keep your airway open so you can breathe more regularly. Extra oxygen may be given through the machine. ?? A mouth device may be recommended by your healthcare provider. The device looks like a mouth guard or dental retainer. It stops your tongue and mouth tissues from blocking your throat while you sleep. ?? Surgery may be needed to remove extra tissues that block your mouth, throat, or nose. How can I manage my symptoms? ?? Do not smoke. Nicotine and other chemicals in cigarettes and cigars can cause lung damage. Ask your healthcare provider for information if you currently smoke and need help to quit. E-cigarettes or smokeless tobacco still contain nicotine. Talk to your healthcare provider before you use these products. ?? Do not drink alcohol or take sedative medicine before you go to sleep. Alcohol and sedatives canrelax the muscles and tissues around your throat. This can block the airflow to your lungs. ?? Maintain a healthy weight. Excess tissue around your throat may restrict your breathing. Ask your healthcare provider for information if you need to lose weight. ?? Sleep on your side or use pillows designed to prevent sleep apnea. This prevents your tongue or other tissues from blocking your throat. You can also raise the head of your bed. When should I seek immediate care? ?? You have chest pain or trouble breathing. When should I contact my healthcare provider? ?? You feel very tired or depressed. ?? You have trouble staying awake during the day. ?? You have trouble thinking and remembering things. ?? You have questions or concerns about your condition or care. CARE AGREEMENT: You have the right to help plan your care. Learn about your health condition and how it may be treated. Discuss treatment options with your caregivers to decide what care you want to receive. You always have the right to refuse treatment. The above information is an educational psychology professor only. It is not intended as medical advice for individual conditions or treatments. Talk to your doctor, nurse or pharmacist before following any medical regimen to see if it is safe and effective for you. ?? 2016 [employer]. Information is for End User's use only and may not be sold, redistributed or otherwise used for commercial purposes. All illustrations and images included in CareNotes?? are the copyrighted property of [employer] or [employer]. documented in this encounter Progress Notes * Darryl Curtis MD - 04/05/2018 4:00 PM CDT Subjective/Objective Patient ID: Rahat Boswell is a 32 y.o. male. Chief Complaint Insomnia Possible sleep apnea - girlfriend notices he snores a lot. Patient experiences sleep paralysis - reports occasional episodes of waking up without being able to move for a few seconds. Review of Systems Constitutional: Negative for fatigue, fever and unexpected weight change. Respiratory: Negative for shortness of breath. Cardiovascular: Negative for chest pain. Psychiatric/Behavioral: Positive for sleep disturbance. Physical Exam Constitutional: He appears well-developed and well-nourished. No distress. HENT: Head: Normocephalic and atraumatic. Mouth/Throat: Oropharynx is clear and moist. No oropharyngeal exudate. Neck: Normal range of motion. Neck supple. No tracheal deviation present. Pulmonary/Chest: Effort normal. Lymphadenopathy: He has no cervical adenopathy. Assessment/Plan Diagnoses and all orders for this visit: Snoring (Primary) - PSG; Future ?? ESS score of 7/24 but snoring and obesity still risk factors ?? Order sleep study and await results documented in this encounter Plan of Treatment Not on file documented as of this encounter Visit Diagnoses Diagnosis Snoring- Primary Other dyspnea and respiratory abnormality documented in this encounter Additional Health Concerns Infection Onset Date Last Indicated Resolved Time MRSA Comment:L. hip 02/07/13 02/10/2013 02/10/2013 04/10/2021 5:00 A M CDT documented as of this encounter Care Teams Edger Hand Relationship Specialty [place] [id number] [address] PCP - General Family Medicine 09/02/17 documented as of this encounter
--- OUTSIDE RECORDS SUMMARY | 2024-08-20 22:53 | XMS_ITS | Encounter Summary ---
Author Organization [facility] Facility Care Team Providers Care Kettle Hand Name Role Phone Unavailable Primary Care Provider Unavailabl e Encounter Details Date Type Department Care Team (Late st Contact Info) Description 06/09/2008 8:22 AM CDT - 06/09/2008 4:00 PM CDT Hospital Encounter [facility] Vicente Gallagher MD [address] [place] [address] [address] Social History Tobacco Use Types Packs/Day Years Used Date Smoking Tobacco: Never Assessed Sex and Gender Information Value Date Recorded Sex Assigned at Not on file Legal Sex Male 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
--- OUTSIDE RECORDS SUMMARY | 2024-08-20 22:53 | XMS_ITS | Continuity of Care Document ---
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 Name Role Phone Caryn Nix MD Unavailable Unavailable Results Test Name Date and Time Measure Units Reference Range Abnormal Flag Status Comments Panel Description: LIPID PANEL Final CHOLESTEROL, TOTAL 18:55:00 161 mg/dL 125-200 N Final Test performed at [employer] [id number] [facility] [place] [address]Zxh erin: ADRIAN JEAN DO,MPH Panel Description: LIPID PANEL Final HDL CHOLESTEROL 18:55:00 51 mg/dL > OR = 40 N Final Test performed at [employer] [id number] [facility] [place] [address]Fcq erin: ADRIAN JEAN DO,MPH Panel Description: LIPID PANEL Final TRIGLYCERIDES 18:55:00 51 mg/dL <150 N Final Test performed at [employer] [facility] [address]Psz erin: ADRIAN JEAN DO,MPH Panel Description: LIPID PANEL Final LDL-CHOLESTEROL 18:55:00 100 mg/dL (calc) <130 N Final Desirable range <100 mg/dL for patients with CHD ordiabetes and <70 mg/dL for diabetic patients withknown heart disease. Test performed at [employer] [facility] [address]Izm erin: ADRIAN JEAN DO,MPH Panel Description: LIPID PANEL Final CHOL/HDLC RATIO 18:55:00 3.2 (calc) < OR = 5.0 N Final Test performed at [employer] [id number] [address] [address]Btz erin: ADRIAN JEAN DO,MPH Panel Description: LIPID PANEL Final NON HDL CHOLESTEROL 18:55:00 110 mg/dL (calc) N Final Target for non-HDL cholesterol is 30 mg/dL higher than LDL cholesterol target.Test performed at [employer] [id number] [place] [address]Rmj erin: ADRIAN JEAN DO,MPH Panel Description: CHLAMYDIA TRACHOMATIS RNA, TM A Final C. TRACHOMATIS RNA, TMA 18:55:00 Not Detected Not Detected Final This test was performed using the [employer] COM[employer](R)Assa y (GEN-PROBE(R) ). Test performed at [employer]/N [id number] [place] [address]Kxs erin: ONEAL AGUILAR MD Panel Description: NEISSERIA GONORRHOEAE RNA, TM A Final N. GONORRHOEAE RNA, TMA 18:55:00 Not Detected Not Detected Final This test was performed using the [employer]2(R)Assa y (GEN-PROBE(R) ). Test performed at [employer]/N [id number] [place] [address]Tpz erin: ONEAL AGUILAR MD Advance Directives Directive Yes / No Effective Date File Name No Information Encounters Encounter Description Practice Location Reason(s) For Visit Diagnoses Date Provider Providers Copied on Encounter [facility], [address], [place], [place], [id number], [place] tel:[phone] [facility] Routine general medical examination at a health care facilityNEED FOR PROPHYLACTIC VACCINATION AND INOCULATION AGAINST TETANUS-DIPHTHERI A [TD] (DT)Screening examination for venereal diseaseNEED FOR PROPHYLACTIC VACCINATION WITH COMBINED DIPHTHERIA-TETANU S-PERTUSSIS (DTP) (DTAP) VACCINEScreening for lipoid disorders [address]in. [address], [address], [place], [place], [id number] . tel: [phone] Referring Provider: Caryn Nix, [address], [place], [address] . tel:[phone] Family History Family Member Type Diagnosis Age At Onset Father Problem (finding) Family history unknown (Cause Of ) Mother Problem (finding) Mother Problem (finding) Family history unknown (Cause Of ) Immunizations Vaccine Date Status Comments Tdap (Adacel r) administered Source: [facility] Unspecified Payers Payer name Insurance type Covered alliance party ID Authoriza tion(s) No Information Social History Type Description Quantity Date Captured Comments Alcohol Use Details No Caffeine Use Details Unknown Tobacco Use Status No Information Smoking Status Never smoker Sex Male Vital Signs Date / Time: Height Weight BMI Pulse Rate Blood Pressure Temperature Respiratory Rate Body Surface Area Head Circumference Head Circ. Percentile Wt./Ok. Percentile BMI percentile Pulse Ox Inhaled Ox 9:12 AM 72.00 in 196.00 lbs 26.5 8 kg/m eter (2) 64 /min 108/80 mm[Hg] 14 /min Chief Complaint And Reason For Visit No Information Reason For Referral Reason For Referral No Information History Of Present Illness Encounter Date Complaint History Of Prese nt Illness No Information Functional Status Date Functional Assessmen t No Information Instructions Date Instruction Additional Infor mation No Information Assessments Type Assessment Date No Information Patient Care Teams Name Effective Dates (start - stop) Status Members No Information
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
--- OUTSIDE RECORDS SUMMARY | 2024-08-20 22:53 | XMS_ITS | Encounter Summary ---
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 Jevon Hartman, BREONNA [address] [place] [address] Social History Tobacco Use Types Packs/Day Years Used Date Smoking Tobacco: Never Assessed Alcohol Use Standard Drinks/Week Comments No 0 (1 standard drink = 0.6 oz pur e alcohol) Sex and Gender Information Value Date Recorded Sex Assigned at Not on file Legal Sex Male 6:06 PM RUBBER BOOTS AND SHOES REPAIRER Gender Identity Not on file Sexual Orientation Not on file documented as of this encounter Plan of Treatment Not on file documented as of this encounter Visit Diagnoses Not on filedocumented in this encounter Additional Health Concerns Infection Onset Date Last Indicated Resolved Time MRSA Comment:L. hip 02/07/13 02/10/2013 02/10/2013 04/10/2021 5:00 A M CDT documented as of this encounter Care Teams Flavor Tank Tender Relationship Specialty Start Date End Date King Mckenzie MD [address] [place] [address] [id number] [place] [address] PCP - General 04/20/13 09/01/17 documented as of this encounter
== END 2024-08-13 16:28 | disposition home or self-care (01) ==
PROVIDERS: Emergency Provider Registered Nurse; PCP Family Medicine
DX: J02.9 Acute pharyngitis, unspecified (principal); Z79.899 Other long term (current) drug therapy; Z11.3 Encounter for screening for infections with a predominantly sexual mode of transmission
CPT/HCPCS: 81003; 87081; 87491; 87591; 87661; 87880; 99213; G0463; J0696; J2003